=== PATIENT | female | born 1950 | race Caucasian/White ===

== ENCOUNTER → 2016-08-23 | Outpatient (CLI) | payer MEDICARE, BC ==
--- NOTE | 2016-08-26 07:03 | MM ---
Reason for exam: screening (asymptomatic). Last mammogram was performed 1 year ago. History: Patient is postmenopausal and has history of other cancer at age 62. Family history of breast cancer in 2 aunts and breast cancer in grandmother. Benign excisional biopsy of the left breast. Benign excisional biopsy of the right breast. Took estrogen for 4 years. Physical Findings: A clinical breast exam by your physician is recommended on an annual basis and results should be correlated with mammographic findings. MG 3D Screening Mammo W/Cad Bilateral CC and MLO view(s) were taken. Prior study comparison: August 22, 2015, bilateral MG 3d screening mammo w/cad. August 19, 2014, bilateral MG screening mammo w CAD. There are scattered fibroglandular densities. There is no discrete abnormality. No significant changes when compared with prior studies. ASSESSMENT: Negative, BI-RAD 1 RECOMMENDATION: Routine screening mammogram of both breasts in 1 year.
== END | disposition home or self-care (01) ==
LOC: RADMAMWWP 06:56
PROVIDERS: ATTEND Obstetrics & Gynecology
DX: Z12.31 Encounter for screening mammogram for malignant neoplasm of breast (principal)
CPT/HCPCS: 77063; G0202

== ENCOUNTER → 2016-10-01 | Outpatient (CLI) | payer MEDICARE, BC ==
--- NOTE | 2016-10-01 16:07 | BD ---
EXAMINATION TYPE: MG DEXA axial skeleton. DATE OF EXAM: 10/01/2016 2:54 PM COMPARISON: NONE CLINICAL HISTORY: Disorder of bone, post menopausal female Height: 61.4 IN Weight: 139 LBS FRAX RISK QUESTIONS: Alcohol (3 or more units per day): NO Family History (Parent hip fracture): YES MOTHER Glucocorticoids (More than 3mos): NO (Ex: prednisone, prednisolone, methylprednisolone, dexamethasone, and hydrocortisone). History of Fracture in Adulthood: NO Secondary Osteoporosis: 1. Type 1 Diabetes: NO 2. Hyperthyroidism: NO 3. Menopause before 45: YES AGE 32 4. Malnutrition: NO 5. Chronic liver disease: NO Rheumatoid Arthritis: YES Current Tobacco Use: NO RISK FACTORS HISTORY OF: Family History of Osteoporosis: YES MOTHER, AUNTS Active: YES Postmenopausal woman: YES AGE 32 Take estrogen and/or progesterone medications: NOT NOW How long: AGE 32 - 37 Lost more than 2 inches in height since high school: YES 3" MEDICATIONS: Additional Medications: VIT D 2000, LIPITOR, METOPROLOL, BABY ASPIRIN, WHARFAIN, OXYCODONE, NEUROTIN EXAM MEASUREMENTS: Bone mineral densitometry was performed using the [employer] System. Bone mineral density as measured about the Lumbar spine is: ----- L1-L4(G/cm2): 1.302 T Score Values are as follows: ----- L2: 1.2 ----- L3: 0.5 ----- L4: 0.8 ----- L1-L4: 1.0 Bone mineral density has: Decreased -0.3% since study of: 08/16/2013 Bone mineral density about the R hip (g/cm2): 0.849 Bone mineral density about the L hip (g/cm2): 0.821 T Score values are as follows: -----R Neck: -1.4 -----L Neck: -1.6 -----R Intertrochanter: -0.8 -----L Intertrochanter: -0.8 Bone mineral density has: Increased 0.5% since study of: 08/16/2013 IMPRESSION: Osteopenia (T Score between -2.5 and -1 as noted by T score values There is slightly increased risk of fracture and the patient may be considered for treatment. Re-Screen 1-2 years. NOTE: T-SCORE=SD OF THE YOUNG ADULT MEAN.
== END | disposition home or self-care (01) ==
LOC: RADBDWWP 14:53
PROVIDERS: ATTEND Obstetrics & Gynecology
DX: M85.80 Other specified disorders of bone density and structure, unspecified site (principal)
CPT/HCPCS: 77080

== ENCOUNTER → 2016-10-31 | Outpatient (CLI) | payer MEDICARE, BC ==
--- NOTE | 2016-10-31 21:13 | CONS ---
DATE: 10/31/2016 CONSULTATION/NEW PATIENT EVALUATION HISTORY OF PRESENT ILLNESS/SLEEP-WAKE EVALUATION: A 56-year-old lady who has been evaluated in sleep center for her sleep problem. SLEEP SCHEDULE: Patient usually falls asleep around midnight. Usually she sleeps until 5:00 a.m. to 7:00 a.m. FALLING ASLEEP: Patient usually falls asleep around midnight on couch for about 15 minutes and after that she may have a problem to fall asleep in her bed. DURING SLEEP: Usually she sleeps until 5:00 a.m. to 7:00 a.m. and up to 2 times she may need to go to restroom at night. She explains it by the fact that she likes to drink a lot of water. She drinks it during the day and she drinks it during the night. According to her , she has episodes of snoring at night. DURING THE DAY/WAKE STATE: During the day, she may feel some sleepiness. Mobile Sleepiness Scale increased to 11 and she has episodes of irritability. She may take naps around 3:00 p.m., according to her. She does not history of hypnagogical hallucinations, sleep paralysis or cataplexy. PAST MEDICAL HISTORY: Positive different blood disorder, MTHFR and factor V Leiden deficiency. She has been told about some more and more since childhood in her heart, she does not exactly know to which valve it is related, she was told about valve insufficiency. Positive history of acid reflux, hyperlipidemia, episodes of palpitations. PAST SURGICAL HISTORY: Total hysterectomy, cholecystectomy, tonsillectomy, left subclavian artery bypass to carotid artery. MEDICATIONS: 1. Aspirin. 2. Metoprolol. 3. Doculase. 4. Atorvastatin. 5. Warfarin. 6. Vitamin D3. 7. Oxycodone. 8. Neurontin. 9. Valtrex. 10. Protonix. SOCIAL HISTORY: Positive for smoking on and off up to 5 cigarettes a day for about 30 years. Alcohol consumption: None. FAMILY HISTORY: Heart problems, hyperlipidemia, stroke, fibromyalgia, arthritis, asthma, lung problems, emphysema, cancer. REVIEW OF SYSTEMS: Sometimes sleepiness during the day. PHYSICAL EXAMINATION: GENERAL: lady without distress. VITAL SIGNS: BP 125/72, HR 54, RR 16. Height 5 feet 1/2 inches. Weight 141. BMI 26. Neck 12-1/2 inches in circumference. Temp is 98.0. HEENT: PERRLA, EOMI. Evaluation of oropharynx showed tongue protrudes midline, low position of soft palate. Retrognathia 2 mm. NECK: Supple. No JVD. Thyroid is not palpable. LUNGS: Clear to percussion and to auscultation. Good air exchange. No wheezing or rhonchi. HEART: S1, S2 regular. No murmurs, gallops or rubs. ABDOMEN: Soft and nontender. Bowel sounds are present. No organomegaly appreciated. EXTREMITIES: No clubbing or cyanosis. MANAGER DISH: Awake, alert, and oriented x3. Cranial nerves 2 to 7 intact. There is no fasciculation or atrophy noted. No focal deficits observed. IMPRESSION: 1. Episodes of snoring, low position of soft palate, awakenings from sleep up to 2 times, Mobile Sleepiness Scale increased to 11, rule out obstructive sleep apnea/hypopnea syndrome. 2. Episodes of palpitations. 3. History of fibromyalgia. 4. History blood coagulation disorder, MTHFR and factor V Leiden deficiency. 5. Acid reflux. 6. History of some cardiac valve insufficiency. Patient does not remember which valve. Possible mitral valve. 7. Hyperlipidemia. 8. Status post total hysterectomy. 9. Status post cholecystectomy. 10. Status post tonsillectomy. 11. Status post left subclavian artery bypass to carotid artery for subclavian steal syndrome. PLAN: 1. Polysomnography for evaluation of patient's breathing during sleep. 2. CPAP/BiPAP titration if sleep study confirms obstructive sleep apnea-hypopnea syndrome. 3. Preferable position during sleep on the side. 4. No driving if patient feels any sleepiness. Patient is aware of civil and criminal liability for unsafe driving. 5. I will see patient for follow-up visit to explain results of the testing and following plan. Thank you very much for referring this patient for consultation. Sincerely, Liu Bartlett MD, PhD, FAASM. Diplomat of [place] [employer], Sleep Medicine Board by [place] [employer] [employer] Counter Attendant of [facility] [place]
== END | disposition home or self-care (01) ==
LOC: SLEEP 13:49
PROVIDERS: ATTEND Internal Medicine
DX: R06.83 Snoring (principal); R00.2 Palpitations; K21.9 Gastro-esophageal reflux disease without esophagitis; E78.5 Hyperlipidemia, unspecified; F17.210 Nicotine dependence, cigarettes, uncomplicated; Z79.82 Long term (current) use of aspirin; Z79.01 Long term (current) use of anticoagulants; Z79.899 Other long term (current) drug therapy
CPT/HCPCS: 99211

== ENCOUNTER 2017-04-07 11:06 | Emergency (ER) | payer MEDICARE, BC ==
[2017-04-07 11:18] VITALS: BP 131/84; PULSE 66; RESP 16; TEMP 98.7
[2017-04-07] MEDS ORDERED: diphenhydrAMINE 50 MG CAP PO STA (11:42)
--- NOTE | 2017-04-07 11:49 | ED ---
General Adult HPI - General Chief complaint: Allergic Reaction Stated complaint: allergic reaction Time Seen by Provider: 04/07/17 11:33 Source: patient Mode of arrival: ambulatory Limitations: no limitations - History of Present Illness Initial comments: is a 67-year-old female who presents to the ED via private vehicle for evaluation of left wrist pruritus after a Depo-Medrol injection last week. Patient reports that this is her fourth Depo-Medrol injection, she states that she has had negative reactions to each injection she has had in the past. She states she has had injections in bilateral shoulders that resulted in erythema and swelling as well as an injection in her low back that resulted in swelling which she describes as being the size of a softball. She discussed this with her orthopedic surgeon on Friday and he advised her that her options for treatment of tendinitis in her wrist were steroid injections or surgery so the patient elected to trial steroid injection. Patient reports that after the injection she began experiencing swelling, erythema and significant pruritus. She has been applying ice packs to the wrist and reports that the swelling and erythema has decreased significantly however she continues to feel very itchy. Patient denies any additional ALLERGIC symptoms including rash elsewhere, tightness in the chest, shortness of breath, wheezing, nausea or vomiting. She reports she is otherwise feeling well. - Related Data Home Medications Medication Instructions Recorded Confirmed Aspirin EC [Ecotrin] 81 mg PO DAILY 03/25/14 04/07/17 Cholecalciferol [Vitamin D3] 2,000 unit PO DAILY@1200 03/25/14 04/07/17 Docusate [Colace] 100 mg PO BID 03/25/14 04/07/17 Gabapentin [Neurontin] 400 mg PO HS 03/25/14 04/07/17 Metoprolol Tartrate [Lopressor] 25 mg PO BID 03/25/14 04/07/17 Warfarin [Coumadin] 5 mg PO SUMOWETHSA 03/25/14 04/07/17 oxyCODONE HCL [OxyIR] 5 mg PO 03/25/14 04/07/17 Atorvastatin [Lipitor] 20 mg PO HS 04/07/17 04/07/17 Warfarin [Coumadin] 7.5 mg PO TUFR 04/07/17 04/07/17 Allergies Allergy/AdvReac Type Severity Reaction Status Date / Time cefixime [From Suprax] Allergy Unknown Verified 04/07/17 12:50 diazepam [From Valium] Allergy Unknown Verified 04/07/17 12:50 ezetimibe [From Vytorin] Allergy Unknown Verified 04/07/17 12:50 hydroxychloroquine sulfate Allergy Unknown Verified 04/07/17 12:50 [From Plaquenil] morphine Allergy Unknown Verified 04/07/17 12:50 moxifloxacin HCl Allergy Unknown Verified 04/07/17 12:50 [From Avelox] Quinolones Allergy Unknown Verified 04/07/17 12:50 simvastatin [From Vytorin] Allergy Unknown Verified 04/07/17 12:50 steroid Allergy Rash/Hives Uncoded 04/07/17 11:18 Review of Systems ROS Statement: Those systems with pertinent positive or pertinent negative responses have been documented in the HPI. ROS Other: All systems not noted in ROS Statement are negative. Constitutional: Denies: fever ENT: Denies: throat pain Respiratory: Denies: cough, dyspnea, wheezes Cardiovascular: Denies: chest pain, palpitations Endocrine: Denies: fatigue Gastrointestinal: Denies: abdominal pain, nausea, vomiting Musculoskeletal: Reports: joint swelling, arthralgia. 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 History of Any Multi-Drug Resistant Organisms: None Reported Past Surgical History: Heart Catheterization, Heart Catheterization With Stent, Hysterectomy, Tubal Ligation Additional Past Surgical History / Comment(s): subclavian to carotid bypass, hemorrhectomy, bilateral breast lumpectomy, epicondyle release both elbow, lap harriett, left ring finger, bladder suspension Past Psychological History: No Psychological Hx Reported Smoking Status: Current every day smoker Past Alcohol Use History: None Reported Past Drug Use History: None Reported General Exam Limitations: no limitations General appearance: alert, in no apparent distress Head exam: Present: atraumatic, normocephalic, normal inspection Eye exam: Present: normal appearance, PERRL, EOMI. Absent: scleral icterus, conjunctival injection, periorbital swelling ENT exam: Present: normal exam, mucous membranes moist Neck exam: Present: normal inspection. Absent: tenderness, meningismus, lymphadenopathy Respiratory exam: Present: normal lung sounds bilaterally. Absent: respiratory distress, wheezes, rales, rhonchi, stridor Cardiovascular Exam: Present: regular rate, normal rhythm, normal heart sounds. Absent: systolic murmur, diastolic murmur, rubs, gallop, clicks GI/Abdominal exam: Present: soft, normal bowel sounds. Absent: distended, tenderness, guarding, rebound, rigid Rectal exam: Present: deferred Left Forearm Wrist exam: Present: tenderness, swelling, erythema, other ( excoriations on wrist consistent with itching, no vesicles, no induration, no abscess formation). Absent: ecchymosis, deformity, crepitus, dislocation Course Vital Signs 04/07/17 04/07/17 11:14 13:18 Temperature 98.7 F 98.7 F Pulse Rate 66 66 Respiratory 16 16 Rate Blood Pressure 131/84 131/84 O2 Sat by Pulse 98 98 Oximetry Medical Decision Making - Medical Decision Making Patient was seen and evaluated, history was obtained from the patient History and physical exam are concerning for an acute ALLERGIC reaction We'll obtain an x-ray to evaluate for any possible gas in the tissues By mouth Benadryl ordered for treatment of ALLERGIC reaction Patient with limited range of motion of left wrist, however is able to range the wrist approximately 45 in flexion and extension with minimal pain, also able to range the thumb. I have minimal concern for septic joint. X-ray reveals arthritic changes no air in the joint or skin Patient reports some symptomatic improvement after Benadryl and ice I feel that this is an ALLERGIC reaction to the Depo-Medrol injection, I advised the patient to continue symptomatic treatment with ice elevation and Benadryl and to follow-up with orthopedic surgery tomorrow Advised the patient to return to the emergency department should she develop any fevers, chills, worsening pain, worsening swelling, worsening erythema any purulence or drainage from the wrists or any signs or symptoms of infection. Patient's breast understanding of this plan. All questions pertaining to care were answered to the best of my ability and the patient was discharged home in stable condition. Disposition Clinical Impression: Allergic reaction Disposition: HOME SELF-CARE Condition: Good Instructions: Anaphylaxis (ED) Referrals: Pilar Newman III, MD [Primary Care Provider] - 1-2 days Jcarlos Trejo DO [Doctor of Osteopathic Medicine] - 1-2 days Time of Disposition: 12:36
--- NOTE | 2017-04-07 12:30 | XR ---
EXAMINATION TYPE: XR wrist complete LT DATE OF EXAM: 04/07/2017 CLINICAL HISTORY: Redness and pain after steroid injection 5 days ago. TECHNIQUE: Frontal, lateral , scaphoid, and oblique images of the left wrist are obtained. COMPARISON: None FINDINGS: Osseous structures are demineralized which is noted lower radiographic sensitivity. There is no acute fracture/dislocation evident in the left wrist. There is joint space loss radiocarpal malik nt. There is joint space loss distal scaphoid articulation with trapezium. The joint space loss at ba se of first metacarpal. The overlying soft tissue appears unremarkable. IMPRESSION: There is no acute fracture or dislocation in the left wrist.
== END 2017-04-07 13:19 | disposition home or self-care (01) ==
LOC: EC 11:06
DX: L29.9 Pruritus, unspecified (principal); M79.89 Other specified soft tissue disorders; T38.0X5A Adverse effect of glucocorticoids and synthetic analogues, initial encounter; I25.10 Atherosclerotic heart disease of native coronary artery without angina pectoris; E78.5 Hyperlipidemia, unspecified; F17.200 Nicotine dependence, unspecified, uncomplicated; Z95.5 Presence of coronary angioplasty implant and graft; Z79.82 Long term (current) use of aspirin; Z79.01 Long term (current) use of anticoagulants; Z79.891 Long term (current) use of opiate analgesic; Z79.899 Other long term (current) drug therapy; Z88.1 Allergy status to other antibiotic agents; Z88.5 Allergy status to narcotic agent; Z88.8 Allergy status to other drugs, medicaments and biological substances
CPT/HCPCS: 99283

== ENCOUNTER → 2017-09-03 | Outpatient (CLI) | payer MEDICARE, BC ==
--- NOTE | 2017-09-04 13:33 | MM ---
Reason for exam: screening (asymptomatic). Last mammogram was performed 1 year ago. History: Patient is postmenopausal and has history of other cancer at age 62. Family history of breast cancer in 2 aunts and breast cancer in grandmother. Benign excisional biopsy of the left breast. Benign excisional biopsy of the right breast. Took estrogen for 4 years. Physical Findings: A clinical breast exam by your physician is recommended on an annual basis and results should be correlated with mammographic findings. MG 3D Screening Mammo W/Cad Bilateral CC and MLO view(s) were taken. Prior study comparison: August 23, 2016, bilateral MG 3d screening mammo w/cad. August 22, 2015, bilateral MG 3d screening mammo w/cad. There are scattered fibroglandular densities. No significant changes when compared with prior studies. ASSESSMENT: Negative, BI-RAD 1 RECOMMENDATION: Routine screening mammogram of both breasts in 1 year.
== END | disposition home or self-care (01) ==
LOC: RADMAMWWP 09:16
PROVIDERS: ATTEND Obstetrics & Gynecology
DX: Z12.31 Encounter for screening mammogram for malignant neoplasm of breast (principal); Z80.3 Family history of malignant neoplasm of breast
CPT/HCPCS: 77063; 77067

== ENCOUNTER → 2017-10-31 | Outpatient (CLI) | payer MEDICARE, BC ==
--- NOTE | 2017-10-31 09:15 | CT ---
EXAMINATION TYPE: CT sinus wo con DATE OF EXAM: 10/31/2017 COMPARISON: NONE HISTORY: Facial pain and pressure with sinus drainage per patient. Chronic sinusitis per order. CT DLP: 559 mGycm. Automated Exposure Control for Dose Reduction was Utilized. TECHNIQUE: CT scan of the sinuses is performed without contrast, axial images are obtained, coronal r eformatted images are also reviewed. FINDINGS: The paranasal sinuses including the frontal, ethmoid, sphenoid, and maxillary sinuses bila terally are well-aerated without abnormal opacification. The ostiomeatal complex is patent bilateral ly on the coronal images. Visualized portion of mastoid air cells show no abnormal opacification. The globes are intact bilate rally. Visualized portion of brain parenchyma shows age-related atrophy. IMPRESSION: The sinuses are clear and the ostiomeatal complex is patent bilaterally.
== END ==
LOC: RADCTMAIN 08:38
PROVIDERS: ATTEND Internal Medicine
DX: J32.9 Chronic sinusitis, unspecified (principal)
CPT/HCPCS: 70486

== ENCOUNTER → 2018-03-06 | Outpatient (CLI) | payer MEDICARE, BC ==
[2018-03-06 10:33] LABS: Calcium 9.3 mg/dL (8.4-10.2); Potassium 4.6 mmol/L (3.5-5.1); Total Bilirubin 0.6 mg/dL (0.2-1.3); Total Protein 6.7 g/dL (6.3-8.2)
== END | disposition home or self-care (01) ==
LOC: LABWHC1 09:43
PROVIDERS: ATTEND Internal Medicine Interventional Cardiology
DX: E78.2 Mixed hyperlipidemia (principal)
CPT/HCPCS: 36415; 80053; 80061

== ENCOUNTER → 2018-06-05 | Outpatient (CLI) | payer MEDICARE, BC ==
--- NOTE | 2018-06-05 15:46 | US ---
EXAMINATION TYPE: US thyroid st tissue head/neck DATE OF EXAM: 06/05/2018 COMPARISON: NONE CLINICAL HISTORY: E04.1 Thyroid nodule. felt nodule GLAND SIZE: Right Lobe: 6.3 x 1.9 x 2.3 cm Overall Parenchyma: homogenous Left Lobe: 5.3 x 1.5 x 2.0 cm Overall Parenchyma: homogeneous Isthmus Thickness: 0.3 cm NODULES RIGHT: # of nodules measured on right: 0 LEFT: # of nodules measured on left: 0 ISTHMUS: # of nodules measured in the isthmus: 0 Bilateral neck scanned, no evidence of lymphadenopathy. No nodules seen. IMPRESSION: Normal thyroid ultrasound.
[2018-06-05 16:36] LABS: T4, Free (Free Thyroxine) 1.31 ng/dL (0.78-2.19)
== END | disposition home or self-care (01) ==
LOC: RADUSWWP 14:59
PROVIDERS: ATTEND Otolaryngology
DX: R22.1 Localized swelling, mass and lump, neck (principal); Z88.5 Allergy status to narcotic agent; Z88.8 Allergy status to other drugs, medicaments and biological substances
CPT/HCPCS: 76536; 84439; 84443; 86376

== ENCOUNTER → 2018-10-02 | Outpatient (CLI) | payer MEDICARE, BC ==
--- NOTE | 2018-10-02 21:13 | BD ---
EXAMINATION TYPE: Axial Bone Density DATE OF EXAM: 10/02/2018 COMPARISON: 10.01.2016 CLINICAL HISTORY: 68 YR OLD FEMALE....ICD-10 CODE: M85.80 OTHER SPECIF. DISORDER OF BONE DENSITY Height: 61.3 Weight: 126 FRAX RISK QUESTIONS: Family History (Parent hip fracture): YES Secondary Osteoporosis: YES 3. Menopause before 45: YES Current Tobacco Use: YES RISK FACTORS HISTORY OF: HX OF BOTH ANKLES BROKEN....<50 YRS OLD Surgery to Spine ONLY INJECTIONS AND NERVE CAUTERIZATIONS Family History of Osteoporosis: YES, MOTHER WITH BROKEN HIP Active: YES Postmenopausal woman: TOTAL HYST AT AGE 23 Take estrogen and/or progesterone medications: IN PAST ONLY ....NONE NOW Lost more than 2 inches in height since high school: YES Hyperparathyroidism: UNSURE MEDICATIONS: Additional Medications: BP MEDS, VIT D, STATINS FOR CHOLESTEROL AND REFLUX MEDS Additional History: HEART CONDITION EXAM MEASUREMENTS: Bone mineral densitometry was performed using the [employer] System. Bone mineral density as measured about the Lumbar spine is: ----- L1-L4(G/cm2): 1.368 T Score Values are as follows: ----- L1: 1.5 ----- L2: 1.6 ----- L3: 1.4 ----- L4: 1.7 ----- L1-L4: 1.6 Bone mineral density has: Increased 6.5% SINCE...10.01.2016 Bone mineral density about the R hip (g/cm2): 0.931 Bone mineral density about the L hip (g/cm2): 0.852 T Score values are as follows: -----R Neck: -1.1 -----L Neck: -2.0 -----R Total: -0.6 -----L Total: -1.2 Bone mineral density has: Decreased -5.5% SINCE....10.01.2016 FRAX%s: THERE IS A 19.1% CHANCE FOR A MAJOR OSTEOPOROTIC FX AND A 3.8% FOR HIP FX....PROBABILITY O F FX IN 10 YRS TIME IMPRESSION: Osteopenia (T Score between -2.5 and -1). There is slightly increased risk of fracture and the patient may be considered for treatment. Re-Screen 2-5 years. NOTE: T-SCORE=SD OF THE YOUNG ADULT MEAN.
== END | disposition home or self-care (01) ==
LOC: RADBDWWP 08:05
PROVIDERS: ATTEND Family Medicine
DX: M85.80 Other specified disorders of bone density and structure, unspecified site (principal)
CPT/HCPCS: 77080

== ENCOUNTER → 2018-10-16 | Outpatient (CLI) | payer MEDICARE, BC ==
--- NOTE | 2018-10-19 11:19 | MM ---
Reason for exam: screening (asymptomatic). Last mammogram was performed 1 year and 1 month ago. History: Patient is postmenopausal and has history of other cancer at age 62. Family history of breast cancer in 2 aunts and breast cancer in grandmother. Benign excisional biopsy of the left breast. Benign excisional biopsy of the right breast. Took estrogen for 4 years. Physical Findings: A clinical breast exam by your physician is recommended on an annual basis and results should be correlated with mammographic findings. MG 3D Screening Mammo W/Cad Bilateral CC and MLO view(s) were taken. Prior study comparison: September 03, 2017, bilateral MG 3d screening mammo w/cad. August 23, 2016, bilateral MG 3d screening mammo w/cad. There are scattered fibroglandular densities. Benign appearing bilateral vascular calcifications. No suspicious abnormality. No significant changes when compared with prior studies. ASSESSMENT: Benign, BI-RAD 2 RECOMMENDATION: Routine screening mammogram of both breasts in 1 year.
== END | disposition home or self-care (01) ==
LOC: RADMAMWWP 07:32
PROVIDERS: ATTEND Obstetrics & Gynecology
DX: Z12.31 Encounter for screening mammogram for malignant neoplasm of breast (principal)
CPT/HCPCS: 77063; 77067

== ENCOUNTER → 2018-10-20 | Outpatient (CLI) | payer MEDICARE, BC ==
--- NOTE | 2018-10-20 13:04 | CT ---
EXAMINATION TYPE: CT chest w con DATE OF EXAM: 10/20/2018 COMPARISON: 06/08/2015 HISTORY: 68-year-old female. Previous abn exam TECHNIQUE: Contiguous axial scanning of the chest after the administration of 100 ml mL of Isovue 300 . Coronal/sagittal reconstructions performed. CT DLP: 133.00mGycm. Automatic exposure control utilized for a dose reduction. FINDINGS: Heart normal size without pericardial effusion. Coronary vessel calcifications are present. Mild atherosclerotic arch calcifications with conventional arch vessels branching anatomy. A proximal left subclavian artery stent is present. Prominent right axillary lymph nodes are unchanged from 2015 suggesting a chronic postinflammatory et iology. Focal 6 mm groundglass patch of peripheral right upper lobe is unchanged. 4 mm right mid lung pulmonary nodule is unchanged. Calcified granuloma left lower lobe is unchanged. 4 mm peripheral left lower lobe pulmonary nodule axial image 32 is unchanged. No consolidation or pleural effusion. Visualized upper abdomen shows cholecystectomy clips. Bones: Moderate degenerative disc disease mid to lower thoracic spine. IMPRESSION: Stable bilateral pulmonary nodules and a 6 mm groundglass right upper lobe pulmonary nodule back to 08/08/2014. No acute pulmonary process. Prior granulomatous disease.
== END | disposition home or self-care (01) ==
LOC: RADCTMAIN 11:01
PROVIDERS: ATTEND Internal Medicine
DX: R91.8 Other nonspecific abnormal finding of lung field (principal); D71 Functional disorders of polymorphonuclear neutrophils
CPT/HCPCS: 82565; 84520; 71260; 36415; Q9967

== ENCOUNTER → 2019-04-21 | Outpatient (CLI) | payer MEDICARE, BC ==
[2019-04-21 23:32] LABS: ALT 24 U/L (8-44); AST 25 U/L (13-35)
== END | disposition home or self-care (01) ==
LOC: LABWHC1 15:31
PROVIDERS: ATTEND Nurse Practitioner Adult Health
DX: E78.2 Mixed hyperlipidemia (principal)
CPT/HCPCS: 36415; 84450; 84460

== ENCOUNTER → 2019-09-21 | Outpatient (CLI) | payer MEDICARE, BC ==
[2019-09-21 14:15] LABS: Hyaline Casts,Urine 1 /lpf (0-2); Mucus,Urine Rare /hpf; RBC,Urine 3 /hpf (0-5); Squamous Epithelial Cell,Urine 2 /hpf (0-4); WBC,Urine 1 /hpf (0-5)
[2019-09-21 14:23] LABS: Appearance,Urine Clear (Clear); Color,Urine Yellow; Specific Gravity,Urine 1.015 (1.001-1.035)
[2019-09-21 14:24] LABS: Bilirubin,Urine Negative (Negative); Blood,Urine Moderate (Negative); Glucose,Urine (UA) Negative (Negative); Ketones,Urine Negative (Negative); Leukocyte Esterase,Urine Negative (Negative); Nitrite,Urine Negative (Negative); Protein,Urine Negative (Negative); Urobilinogen,Urine <2.0 mg/dL (<2.0)
[2019-09-21 18:46] LABS: African American GFR (CKD) 67.5 (60.0-200.0); Anion Gap 3.9 mmol/L (4.00-12.00); Calcium 9.3 mg/dL (8.7-10.3); Carbon Dioxide 26.1 mmol/L (21.6-31.8); Non-African American GFR(CKD) 58.2 (60.0-200.0); Potassium 4.5 mmol/L (3.5-5.5)
[2019-09-21 21:09] LABS: Hemoglobin A1C 5.5 % (4.0-6.0)
== END ==
LOC: LABWHC1 12:17
PROVIDERS: ATTEND Internal Medicine
DX: R35.8 Other polyuria (principal)
CPT/HCPCS: 36415; 80048; 81001; 83036

== ENCOUNTER → 2019-10-06 | Outpatient (CLI) | payer MEDICARE, BC ==
--- NOTE | 2019-10-07 12:31 | MM ---
Reason for exam: screening (asymptomatic). Last mammogram was performed 1 year ago. History: Patient is postmenopausal and has history of other cancer at age 62. Family history of breast cancer in 2 aunts and breast cancer in grandmother. Benign excisional biopsy of the left breast. Benign excisional biopsy of the right breast. Took hormonal contraceptives for 5 years. Took estrogen for 4 years. Physical Findings: A clinical breast exam by your physician is recommended on an annual basis and results should be correlated with mammographic findings. MG 3D Screening Mammo W/Cad Bilateral CC and MLO view(s) were taken. Prior study comparison: October 16, 2018, bilateral MG 3d screening mammo w/cad. September 03, 2017, bilateral MG 3d screening mammo w/cad. There are scattered fibroglandular densities. Benign appearing bilateral vascular calcifications. No suspicious abnormality. No significant changes when compared with prior studies. ASSESSMENT: Benign, BI-RAD 2 RECOMMENDATION: Routine screening mammogram of both breasts in 1 year.
== END | disposition home or self-care (01) ==
LOC: RADMAMWWP 09:06
PROVIDERS: ATTEND Obstetrics & Gynecology
DX: Z12.31 Encounter for screening mammogram for malignant neoplasm of breast (principal)
CPT/HCPCS: 77063; 77067

== ENCOUNTER → 2019-10-22 | Outpatient (CLI) | payer MEDICARE, BC ==
[2019-10-22 11:10] LABS: African American GFR (CKD) 76.7 (60.0-200.0); Albumin 4.2 g/dL (3.80-4.90); Albumin/Globulin Ratio 1.68 (1.60-3.17); BUN/Creat Ratio 17.78 Ratio (12.00-20.00); Calcium 9.4 mg/dL (8.7-10.3); Chol/HDL Ratio 2.59; Globulin 2.5 g/dL (1.6-3.3); Non-African American GFR(CKD) 66.2 (60.0-200.0); Potassium 4.8 mmol/L (3.5-5.5); Total Bilirubin 0.2 mg/dL (0.3-1.2); Total Protein 6.7 g/dL (6.2-8.2)
== END | disposition home or self-care (01) ==
LOC: LABWHC1 07:26
PROVIDERS: ATTEND Internal Medicine Interventional Cardiology
DX: E78.2 Mixed hyperlipidemia (principal)
CPT/HCPCS: 36415; 80053; 80061

== ENCOUNTER → 2020-04-14 | Outpatient (CLI) | payer MEDICARE, BC ==
--- NOTE | 2020-04-14 13:06 | CTL ---
EXAMINATION TYPE: CT Low Dose Lung DATE OF EXAM ORDERED: 04/14/2020 HISTORY: . Lung cancer screening CT DLP: [address] CTDI: 1.7 mGy Automated exposure control for dose reduction was used. SCREENING VISIT: COMPARISON: 06/08/2015 TECHNIQUE: Low dose computed tomography scan was performed through the chest at 1 mm thick sections a nd reconstructed images in the coronal plane at [address] DIAGNOSTIC QUALITY: Satisfactory FINDINGS: LUNG NODULES: There is a 2 mm subpleural nodule in the right upper lobe There is a calcified 5 mm granuloma right upper lobe. In the right lung apex is somewhat stellate tiny density measuring 5.5 mm. Calcified granuloma posterior segment left lower lobe. LUNGS: Biapical pleural thickening. No consolidation or pleural effusion. PLEURAL SPACE: No pleural effusion or calcification. No pneumothorax. HEART: Coronary artery calcification noted. There is cardiomegaly with no sizable pericardial effusion. Athe rosclerotic change of the aorta. OTHER FINDINGS: Postcholecystectomy changes in the abdomen on the right. Hypertrophic and degenerative changes of the spine. IMPRESSION: 1. Multiple subcentimeter pulmonary nodules as discussed above one of which measures 6 mm. 6 mm nodul e right upper lobe appears stable from 2014 and therefore likely related to scar. 2. Dense coronary artery calcification FOLLOW UP CT CHEST RECOMMENDATION: Annual [address] LUNG RAD: Lung-Rad 2 Benign Appearance or Behavior
== END | disposition home or self-care (01) ==
LOC: RADCTMAIN 12:23
PROVIDERS: ATTEND Family Medicine
DX: Z12.2 Encounter for screening for malignant neoplasm of respiratory organs (principal); R91.8 Other nonspecific abnormal finding of lung field; I25.10 Atherosclerotic heart disease of native coronary artery without angina pectoris; Z87.891 Personal history of nicotine dependence

== ENCOUNTER → 2020-04-25 | Outpatient (CLI) | payer MEDICARE, BC ==
[2020-04-25 18:23] LABS: Chol/HDL Ratio 2.41; LDL Cholesterol,Calculated 69.6 mg/dL (0.0-131.0); VLDL Calculation 16.4 mg/dL (5.00-40.00)
== END | disposition home or self-care (01) ==
LOC: LABWHC1 10:27
PROVIDERS: ATTEND Nurse Practitioner Adult Health
DX: E78.2 Mixed hyperlipidemia (principal)
CPT/HCPCS: 36415; 80061

== ENCOUNTER → 2020-06-16 | Outpatient (CLI) | payer MEDICARE, BC ==
[2020-06-16 16:05] LABS: African American GFR (CKD) 76.1 (60.0-200.0); Anion Gap 6.3 mmol/L (4.00-12.00); BUN/Creat Ratio 14.44 Ratio (12.00-20.00); Calcium 9.5 mg/dL (8.7-10.3); Carbon Dioxide 29.7 mmol/L (21.6-31.8); Non-African American GFR(CKD) 65.7 (60.0-200.0); Potassium 4.8 mmol/L (3.5-5.5)
== END | disposition home or self-care (01) ==
LOC: LABWHC1 08:25
PROVIDERS: ATTEND Nurse Practitioner Adult Health
DX: I10 Essential (primary) hypertension (principal)
CPT/HCPCS: 36415; 80048

== ENCOUNTER → 2020-09-29 | Outpatient (CLI) | payer MEDICARE, BC ==
--- NOTE | 2020-09-29 13:52 | CT ---
EXAMINATION TYPE: CT abdomen pelvis w con DATE OF EXAM: 09/29/2020 COMPARISON: None HISTORY: 40 lb weight loss over past year. CT DLP: 365.1 mGycm CONTRAST: CT scan of the abdomen and pelvis is performed with Oral Contrast and with IV Contrast, patient injec mary with 100 mL of Isovue M300. FINDINGS: LUNG BASES-: No visible nodule. No infiltrate. LIVER/GB: Cholecystectomy clips are in place. No space occupying hepatic lesion. Biliary tree is o f normal caliber. PANCREAS: No inflammation. No distinct mass. SPLEEN: No splenic enlargement. No lesion seen. ADRENALS: No nodule. No thickening. KIDNEYS/BLADDER: No hydronephrosis. No nephrolithiasis. No distinct renal mass. Urinary bladder g rossly unremarkable. BOWEL: Normal appendix. Normal bowel caliber. No inflammation. GENITAL ORGANS: No gross abnormality. LYMPH NODES: No greater than 1cm abdominal or pelvic lymph nodes are appreciated. AORTA: No significant abnormality. OSSEOUS STRUCTURES: No significant abnormality is seen. OTHER: No significant additional abnormality is seen. IMPRESSION: 1. No significant abnormality to account for the patient's symptoms.
== END | disposition home or self-care (01) ==
LOC: RADCTMAIN 11:43
PROVIDERS: ATTEND Internal Medicine
DX: R63.4 Abnormal weight loss (principal)
CPT/HCPCS: 82565; 84520; 74177; 36415; Q9967 ×2

== ENCOUNTER → 2020-10-09 | Outpatient (CLI) | payer MEDICARE, BC ==
--- NOTE | 2020-10-10 11:24 | MM ---
Reason for exam: screening (asymptomatic). Last mammogram was performed 1 year ago. History: Patient is postmenopausal and has history of other cancer at age 62. Family history of breast cancer in 2 aunts and breast cancer in grandmother. Benign excisional biopsy of the left breast. Benign excisional biopsy of the right breast. Took hormonal contraceptives for 5 years. Took estrogen for 4 years. Physical Findings: A clinical breast exam by your physician is recommended on an annual basis and results should be correlated with mammographic findings. MG 3D Screening Mammo W/Cad Bilateral CC and MLO view(s) were taken. Prior study comparison: October 06, 2019, bilateral MG 3d screening mammo w/cad. October 16, 2018, bilateral MG 3d screening mammo w/cad. There are scattered fibroglandular densities. There are benign appearing round, vascular calcifications bilaterally. There is chronic nodularity in the left axilla. There is no discrete abnormality. ASSESSMENT: Benign, BI-RAD 2 RECOMMENDATION: Routine screening mammogram of both breasts in 1 year.
== END | disposition home or self-care (01) ==
LOC: RADMAMWWP 07:30
PROVIDERS: ATTEND Obstetrics & Gynecology
DX: Z12.31 Encounter for screening mammogram for malignant neoplasm of breast (principal)
CPT/HCPCS: 77063; 77067

== ENCOUNTER → 2020-10-30 | Outpatient (CLI) | payer MEDICARE, BC ==
--- NOTE | 2020-10-30 18:44 | BD ---
EXAMINATION TYPE: Axial Bone Density DATE OF EXAM: 10/30/2020 COMPARISON: 10.01.2016 CLINICAL HISTORY: 70 YR OLD FEMALE.....ICD-10 CODE: M89.9 DISORDER OF BONE Height: 61 Weight: 114 FRAX RISK QUESTIONS: Family History (Parent hip fracture): YES History of Fracture in Adulthood: YES Secondary Osteoporosis: YES 3. Menopause before 45: YES Rheumatoid Arthritis: YES Current Tobacco Use: YES RISK FACTORS HISTORY OF: HX OF BOTH ANKLE FXS AN ADULT Surgery to Spine PAIN INJECTIONS, ONLY, Family History of Osteoporosis: YES, HER MOTHER, WITH HIP FX Postmenopausal woman: YES, AT 32 YRS OLD, EARLY NATURALLY Take estrogen and/or progesterone medications: YES IN THE PAST FOR SHORT TIME Lost more than 2 inches in height since high school: YES Hyperparathyroidism: NO Adrenal Insufficiency: NO MEDICATIONS: Prednisone or other steroids: PRN ONLY Additional Medications: BP MEDS, REFLUX MEDS PRN, STATIN FOR CHOLESTEROL, VIT D, BLOOD THINNERS Additional History: HYPERTENSION, REFLUX, HX OF BLOOD CLOTS, LT SUBCLAVIAN, CHOLESTEROL, RA EXAM MEASUREMENTS: Bone mineral densitometry was performed using the [employer] System. Bone mineral density as measured about the Lumbar spine is: ----- L1-L4(G/cm2): 1.316 T Score Values are as follows: ----- L1: 1.6 ----- L2: 1.1 ----- L3: 1.0 ----- L4: 0.8 ----- L1-L4: 1.1 Bone mineral density has: Increased 1.1% SINCE...... 10.01.2016 Bone mineral density about the R hip (g/cm2): 0.880 Bone mineral density about the L hip (g/cm2): 0.807 T Score values are as follows: -----R Neck: -1.3 -----L Neck: -2.2 -----R Total: -1.0 -----L Total: -1.6 Bone mineral density has: Decreased -10.7% SINCE..... 10.01.2016 FRAX%s: THERE IS A 39.7% CHANCE FOR A MAJOR OSTEOPOROTIC FX AND A 16.0% FOR HIP.....PROBABILITY FOR FX IN 10 YRS TIME IMPRESSION: Osteopenia (T Score between -2.5 and -1). There is slightly increased risk of fracture and the patient may be considered for treatment. Re-Screen 2-5 years. NOTE: T-SCORE=SD OF THE YOUNG ADULT MEAN.
== END | disposition home or self-care (01) ==
LOC: RADBDWWP 09:18
PROVIDERS: ATTEND Obstetrics & Gynecology
DX: M85.80 Other specified disorders of bone density and structure, unspecified site (principal)
CPT/HCPCS: 77080

== ENCOUNTER → 2020-11-06 | Outpatient (CLI) | payer MEDICARE, BC ==
[2020-11-06 16:32] LABS: Albumin 4.2 g/dL (3.80-4.90); Albumin/Globulin Ratio 1.91 (1.60-3.17); Anion Gap 3.1 mmol/L (4.00-12.00); Calcium 9.3 mg/dL (8.7-10.3); Carbon Dioxide 28.9 mmol/L (21.6-31.8); Chol/HDL Ratio 2.46; Globulin 2.2 g/dL (1.6-3.3); Non-African American GFR(CKD) 57.8 (60.0-200.0); Potassium 5.2 mmol/L (3.5-5.5); Total Bilirubin 0.3 mg/dL (0.3-1.2); Total Protein 6.4 g/dL (6.2-8.2)
== END | disposition home or self-care (01) ==
LOC: LABWHC1 07:21
PROVIDERS: ATTEND Nurse Practitioner Adult Health
DX: E78.2 Mixed hyperlipidemia (principal); I10 Essential (primary) hypertension
CPT/HCPCS: 36415; 80053; 80061

== ENCOUNTER → 2021-04-19 | Outpatient (CLI) | payer MEDICARE, BC ==
[2021-04-19 17:45] LABS: African American GFR (CKD) >90 (>60 ml/min/1.73 sqM); Blood Urea Nitrogen 13 mg/dL (7-17); Non-African American GFR(CKD) 84 (>60 ml/min/1.73 sqM)
--- NOTE | 2021-04-20 16:47 | CT ---
EXAMINATION TYPE: CT chest w con DATE OF EXAM: 04/19/2021 COMPARISON: 10/20/2018 HISTORY: lung nodule CT DLP: 134.1 mGycm, Automated exposure control for dose reduction was used. CONTRAST: Performed injected with 80 mL of Isovue 300. TECHNIQUE: Axial images were obtained at 5 mm thick sections. Reconstructed images are reviewed on [employer] computer in the coronal plane. FINDINGS: Portion of the thyroid visualized is normal. No suspicious lung nodules or focal infiltrates are present. There is a calcified granuloma in the pe riphery of the right mid lung. Series 4 image 28. An additional calcified granulomas in the periphery of the posterior lateral left lung. Previous pneumonitis in the right lung is not identified. No enlarged mediastinal or hilar adenopathy is evident. The ascending aorta diameter at the level o f the main pulmonary artery is 2.9 cm. The main pulmonary artery diameter at the bifurcation is 2.6 cm. Coronary artery calcifications likely present. Limited CT sections are obtained through the upper abdomen. Abdomen is essentially unremarkable. IMPRESSIONS: 1. No suspicious acute changes.
== END | disposition home or self-care (01) ==
LOC: RADCTMAIN 17:00
PROVIDERS: ATTEND Internal Medicine
DX: R91.1 Solitary pulmonary nodule (principal)
CPT/HCPCS: 82565; 84520; 71260; 36415; Q9967

== ENCOUNTER → 2021-06-02 | Outpatient (CLI) | payer MEDICARE, BC ==
[2021-06-02 13:07] LABS: African American GFR (CKD) 75.6 (60.0-200.0); Albumin 4.3 g/dL (3.8-4.9); Albumin/Globulin Ratio 1.87 (1.60-3.17); Anion Gap 11.9 mmol/L (4.00-12.00); Blood Urea Nitrogen 13.5 mg/dL (9.0-27.0); Calcium 9.8 mg/dL (8.7-10.3); Carbon Dioxide 25.1 mmol/L (21.6-31.8); Chol/HDL Ratio 2.22 Ratio; Globulin 2.3 g/dL (1.6-3.3); HDL Cholesterol 66.3 mg/dL (40.00-60.00); LDL Cholesterol,Calculated 68.1 mg/dL (0.0-131.0); Non-African American GFR(CKD) 65.2 (60.0-200.0); Potassium 4.9 mmol/L (3.5-5.5); Total Bilirubin 0.4 mg/dL (0.30-1.20); Total Protein 6.6 g/dL (6.2-8.2); Triglycerides 62.8 mg/dL (0.00-149.00); VLDL Calculation 12.56 mg/dL (5.00-40.00)
== END | disposition home or self-care (01) ==
LOC: LABWHC1 08:05
PROVIDERS: ATTEND Nurse Practitioner Adult Health
DX: I10 Essential (primary) hypertension (principal); E78.2 Mixed hyperlipidemia
CPT/HCPCS: 36415; 80053; 80061

== ENCOUNTER → 2021-10-10 | Outpatient (CLI) | payer MEDICARE, BC ==
--- NOTE | 2021-10-10 13:58 | MM ---
Reason for exam: screening (asymptomatic). Last mammogram was performed 1 year ago. History: Patient is postmenopausal and has history of other cancer at age 62. Family history of breast cancer in mother at age 74, breast cancer in 2 aunts, and breast cancer in grandmother. Benign excisional biopsy of the left breast. Benign excisional biopsy of the right breast. Took hormonal contraceptives for 5 years. Took estrogen for 4 years. Physical Findings: A clinical breast exam by your physician is recommended on an annual basis and results should be correlated with mammographic findings. MG 3D Screening Mammo W/Cad Bilateral CC and MLO view(s) were taken. Prior study comparison: October 09, 2020, bilateral MG 3d screening mammo w/cad. October 06, 2019, bilateral MG 3d screening mammo w/cad. The breast tissue is heterogeneously dense. This may lower the sensitivity of mammography. Stable vascular calcifications. There is no discrete abnormality. No significant changes when compared with prior studies. ASSESSMENT: Benign, BI-RAD 2 RECOMMENDATION: Routine screening mammogram of both breasts in 1 year.
== END | disposition home or self-care (01) ==
LOC: RADMAMWWP 07:05
PROVIDERS: ATTEND Obstetrics & Gynecology
DX: Z12.31 Encounter for screening mammogram for malignant neoplasm of breast (principal); Z78.0 Asymptomatic menopausal state; Z80.3 Family history of malignant neoplasm of breast
CPT/HCPCS: 77063; 77067

== ENCOUNTER → 2022-01-03 | Outpatient (CLI) | payer MEDICARE, BC ==
[2022-01-03 11:14] LABS: ALT 12 U/L (8-44); AST 23 U/L (13-35); Chol/HDL Ratio 2.36 Ratio; LDL Cholesterol,Calculated 75.9 mg/dL (0.0-131.0); VLDL Calculation 12.22 mg/dL (5.00-40.00)
== END | disposition home or self-care (01) ==
LOC: LABWHC1 07:06
PROVIDERS: ATTEND Nurse Practitioner Adult Health
DX: E78.2 Mixed hyperlipidemia (principal)
CPT/HCPCS: 36415; 80061; 84450; 84460

== ENCOUNTER → 2022-10-31 | Outpatient (CLI) | payer MEDICARE, BC ==
--- NOTE | 2022-10-31 12:45 | BD ---
EXAMINATION TYPE: Axial Bone Density DATE OF EXAM: 10/31/2022 CLINICAL HISTORY: 72 years old Female. ICD-10 CODE: M85.88 DISORDER OF BONE DENSITY Height: 61 Weight: 108 FRAX RISK QUESTIONS: Family History (Parent hip fracture): yes History of Fracture in Adulthood: yes Secondary Osteoporosis: yes 3. Menopause before 45: yes Rheumatoid Arthritis: yes Current Tobacco Use: yes RISK FACTORS HISTORY OF: bilat ankle fxs as an adult Spine : pain injections only Family History of Osteoporosis: yes Postmenopausal woman: yes, at 32 yrs. Old Take estrogen and/or progesterone medications: in past for short time Hyperparathyroidism: no Adrenal Insufficiency: no MEDICATIONS: Additional Medications: bp meds, reflux meds, statin for cholesterol, blood thinners, vit d, Additional History: hx of bypass, hypertension, cholesterol, 2 clotting disorders, reflux, EXAM MEASUREMENTS: Bone mineral densitometry was performed using the [employer]. Bone mineral density as measured about the Lumbar spine is: ----- L1-L4(G/cm2): 1.027 T Score Values are as follows: ----- L1: -0.1 ----- L2: -0.4 ----- L3: 0.6 ----- L4: 0.4 ----- L1-L4: 0.2 Z Score Values are as follows: ----- L1: 2.0 ----- L2: 1.8 ----- L3: 2.7 ----- L4: 2.6 ----- L1-L4: 2.4 Bone mineral density has: Decreased -8.3% since study of: 10.30.2020 Bone mineral density about the R hip (g/cm2): 0.834 Bone mineral density about the L hip (g/cm2): 0.756 T Score values are as follows: -----R Neck: -1.6 -----L Neck: -2.6 -----R Total: -1.4 -----L Total: -2.0 Z Score values are as follows: -----R Neck: 0.5 -----L Neck: -0.5 -----R Total: 0.5 -----L Total: -0.1 Bone mineral density has: Decreased -5.7% since study of: 10.30.2020 FRAX%s: The graph provided illustrates a 46.8% chance for a major osteoporotic fx and a 28.4% chance for the hips probability for fx in 10 years time. IMPRESSION: Osteoporosis (T Score less than -2.5). There is increased fracture risk and therapy is usually indicated based on age. Re-Screen 1-2 years. NOTE: T-SCORE=SD OF THE YOUNG ADULT MEAN.
--- NOTE | 2022-11-01 07:51 | MM ---
Reason for Exam: Screening (asymptomatic). Last screening mammogram was performed 12 month(s) ago. Patient History: Menarche at age 15. First Full-Term at age 21. Left ovary removed at age 32. Right ovary removed at age 32. Hysterectomy at age 32. Postmenopausal. Other cancer, age 62. Estrogen for 4 years until age 54. Patient used Hormonal Contraceptives for 5 years. Benign Excisional Biopsy on the right side. Benign Excisional Biopsy on the left side. Maternal grandmother had breast cancer. Maternal aunt had breast cancer. Maternal aunt had breast cancer. Mother had breast cancer, age 74. Risk Values: Lupe 5 year model risk: 4.8%. NCI Lifetime model risk: 13.5%. Prior Study Comparison: 10/06/2019 Bilateral Screening Mammogram, [facility]. 10/09/2020 Bilateral Screening Mammogram, [facility]. 10/10/2021 Bilateral Screening Mammogram, [facility]. Tissue Density: There are scattered fibroglandular densities. Findings: Analyzed By CAD. There is no suspicious group of microcalcifications or new suspicious mass in either breast. Overall Assessment: Negative, BI-RAD 1 Management: Screening Mammogram of both breasts in 1 year. A clinical breast exam by your physician is recommended on an annual basis and results should be correlated with mammographic findings. Electronically signed and approved by: Rufino Lopez M.D. Radiologis
== END | disposition home or self-care (01) ==
LOC: RADMAMWWP 08:04
PROVIDERS: ATTEND Obstetrics & Gynecology
DX: Z12.31 Encounter for screening mammogram for malignant neoplasm of breast (principal); M81.0 Age-related osteoporosis without current pathological fracture; M85.88 Other specified disorders of bone density and structure, other site
CPT/HCPCS: 77063; 77067; 77080

== ENCOUNTER → 2022-12-31 | Outpatient (CLI) | payer MEDICARE, BC ==
[2022-12-31 15:51] LABS: ALT 17 U/L (8-44); AST 21 U/L (13-35); Chol/HDL Ratio 2.07 Ratio; LDL Cholesterol,Calculated 66.8 mg/dL (0.0-131.0); VLDL Calculation 9.64 mg/dL (5.00-40.00)
== END | disposition home or self-care (01) ==
LOC: LABWHC1 07:03
PROVIDERS: ATTEND Internal Medicine Interventional Cardiology
DX: E78.2 Mixed hyperlipidemia (principal)
CPT/HCPCS: 36415; 80061; 84450; 84460

== ENCOUNTER 2023-03-11 18:09 | Emergency (ER) | payer MEDICARE, BC ==
[2023-03-11 18:35] VITALS: TEMP 99.6
[2023-03-11] MEDS ORDERED: SODIUM CHLORIDE 0.9% 1,000 ML IV STA (18:56)
[2023-03-11] MEDS ORDERED: IPRATROPIUM-ALBUTEROL 3 ML NEB INHALATION STA (18:56)
[2023-03-11] MEDS ORDERED: methylPREDNISolone SOD SUCCI 125 MG/2 ML VIAL IV STA (18:56)
[2023-03-11 19:16] VITALS: RESP 18
[2023-03-11 19:18] LABS: Basophils # (A) 0.1 k/uL (0-0.2); Basophils % (A) 1 %; Eosinophils % (A) 0 %; HCT 43.7 % (34.0-46.0); Lymphocytes # (A) 0.4 k/uL (1.0-4.8); Lymphocytes % (A) 6 %; MCH 32.5 pg (25.0-35.0); MCHC 34.4 g/dL (31.0-37.0); MCV 94.4 fL (80.0-100.0); Mean Platelet Volume 7.3; Monocytes # (A) 0.6 k/uL (0-1.0); Monocytes % (A) 9 %; Neutrophils # (A) 5.2 k/uL (1.3-7.7); Neutrophils % (A) 81 %; Platelet Count 200 k/uL (150-450); RBC 4.63 m/uL (3.80-5.40); RDW 11.4 % (11.5-15.5); WBC 6.4 k/uL (3.8-10.6)
--- NOTE | 2023-03-11 19:28 | XR ---
EXAMINATION TYPE: XR chest 2V DATE OF EXAM: 03/11/2023 7:14 PM COMPARISON: Chest radiographs from 02/28/2023 TECHNIQUE: XR chest 2V Frontal and lateral views of the chest. CLINICAL INDICATION:Female, 72 years old with history of cough; FINDINGS: Lungs/Pleura: There is no evidence of pleural effusion, focal consolidation, or pneumothorax. Calcif ied granuloma left lower lung posteriorly. Pulmonary vascularity: Unremarkable. Heart/mediastinum: Cardiomediastinal silhouette is unremarkable. Stent graft present of the aortic ar ch. Musculoskeletal: No acute osseous pathology. IMPRESSION: No acute cardiopulmonary disease/process.
[2023-03-11 19:29] LABS: ALT 24 U/L (4-34); AST 35 U/L (14-36); African American GFR (CKD) >90 (>60 ml/min/1.73 sqM); Albumin 4.3 g/dL (3.5-5.0); Alkaline Phosphatase 65 U/L (38-126); Anion Gap 10 mmol/L; Blood Urea Nitrogen 14 mg/dL (7-17); Calcium 9.3 mg/dL (8.4-10.2); Carbon Dioxide 23 mmol/L (22-30); Chloride 99 mmol/L (98-107); Glucose 113 mg/dL (74-99); Non-African American GFR(CKD) 86 (>60 ml/min/1.73 sqM); Potassium 4.3 mmol/L (3.5-5.1); Sodium 132 mmol/L (137-145); Total Bilirubin 0.6 mg/dL (0.2-1.3); Total Protein 7.8 g/dL (6.3-8.2)
[2023-03-11 21:18] VITALS: BP 139/67; PULSE 92
--- NOTE | 2023-03-11 21:27 | ED ---
General Adult HPI - General Chief complaint: Upper Respiratory Infection Stated complaint: Body Aches, No Madhavi, General Weakness Time Seen by Provider: 03/11/23 18:42 Source: patient Mode of arrival: wheelchair - History of Present Illness Initial comments: Patient is 72-year-old female presents to the emergency department for upper respiratory symptoms. Patient has a dry cough, body aches, decreased appetite for the past 5 days. She has chills no fever. No chest pain or shortness of breath. Patient has a history of COPD and has had trouble controlling her cough. She has not been using her inhaler or nebulizer at home. She is on Tessalon Perles and doxycycline prescribed by her primary care provider couple days ago. Her family was recently sick with upper respiratory infection. No nausea or vomiting. - Related Data Home Medications Medication Instructions Recorded Confirmed Aspirin EC [Ecotrin] 81 mg PO DAILY 03/25/14 04/07/17 Cholecalciferol [Vitamin D3] 2,000 unit PO DAILY@1200 03/25/14 04/07/17 Docusate [Colace] 100 mg PO BID 03/25/14 04/07/17 Gabapentin [Neurontin] 400 mg PO HS 03/25/14 04/07/17 Metoprolol Tartrate [Lopressor] 25 mg PO BID 03/25/14 04/07/17 Warfarin [Coumadin] 5 mg PO SUMOWETHSA 03/25/14 04/07/17 oxyCODONE HCL [OxyIR] 5 mg PO HS 03/25/14 04/07/17 Atorvastatin [Lipitor] 20 mg PO HS 04/07/17 04/07/17 Warfarin [Coumadin] 7.5 mg PO TUFR 04/07/17 04/07/17 Previous Rx's Medication Instructions Recorded predniSONE 50 mg PO DAILY #5 tab 03/11/23 Allergies Allergy/AdvReac Type Severity Reaction Status Date / Time cefixime [From Suprax] Allergy Unknown Verified 03/11/23 18:35 diazepam [From Valium] Allergy Unknown Verified 03/11/23 18:35 ezetimibe [From Vytorin] Allergy Unknown Verified 03/11/23 18:35 hydroxychloroquine sulfate Allergy Unknown Verified 03/11/23 18:35 [From Plaquenil] morphine Allergy Unknown Verified 03/11/23 18:35 moxifloxacin HCl Allergy Unknown Verified 03/11/23 18:35 [From Avelox] Quinolones Allergy Unknown Verified 03/11/23 18:35 simvastatin [From Vytorin] Allergy Unknown Verified 03/11/23 18:35 steroid Allergy Rash/Hives Uncoded 04/07/17 11:18 Review of Systems ROS Statement: Those systems with pertinent positive or pertinent negative responses have been documented in the HPI. ROS Other: All systems not noted in ROS Statement are negative. 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 Absent: scleral icterus, conjunctival injection, periorbital swelling Respiratory exam: Present: decreased breath sounds. Absent: normal lung sounds bilaterally, respiratory distress, wheezes, rales, rhonchi, stridor Cardiovascular Exam: Present: regular rate, normal rhythm, normal heart sounds. Absent: systolic murmur, diastolic murmur, rubs, gallop, clicks GI/Abdominal exam: Present: soft, normal bowel sounds. Absent: distended, tenderness, guarding, rebound, rigid Neurological exam: Present: alert, oriented X3 Psychiatric exam: Present: normal affect, normal mood Skin exam: Present: warm, dry, intact, normal color. Absent: rash Course Vital Signs 03/11/23 03/11/23 03/11/23 18:32 19:15 20:12 Temperature 99.6 F Pulse Rate 89 96 101 H Respiratory 16 18 Rate Blood Pressure 158/74 O2 Sat by Pulse 95 95 Oximetry 03/11/23 03/11/23 20:24 21:00 Temperature Pulse Rate 97 92 Respiratory 18 Rate Blood Pressure 139/67 O2 Sat by Pulse 99 Oximetry Medical Decision Making - Medical Decision Making Was pt. sent in by a medical professional or institution (GLENN Rao, SALES SUPPORT REPRESENTATIVE, urgent care, hospital, or [facility]...) When possible be specific @ -No Did you speak to anyone other than the patient for history (EMS, parent, family, police, friend...)? What history was obtained from this source @ -No Did you review nursing and triage notes (agree or disagree)? Why? @ -I reviewed and agree with nursing and triage notes Were old charts reviewed (outside hosp., previous admission, EMS record, old EKG, old radiological studies, urgent care reports/EKG's, [facility] records)? Report findings @ -No old charts were reviewed Differential Diagnosis (chest pain, altered mental status, abdominal pain women, abdominal pain men, vaginal bleeding, weakness, fever, dyspnea, syncope, headach e, dizziness, GI bleed, back pain, seizure, CVA, palpatations, mental health)? @ -URI, sinusitus,strep pharyngitis, viral pharyngitis, pneumonia, bronchitis COPD exacerbation, -this list is not meant to be all-inclusive EKG interpreted by me (3pts min.). @ -As above X-rays interpreted by me (1pt min.). @ No acute cardiopulmonary process CT interpreted by me (1pt min.). @ -None done U/S interpreted by me (1pt. min.). @ -None done What testing was considered but not performed or refused? (CT, X-rays, U/S, labs)? Why? @ -None What meds were considered but not given or refused? Why? @ -None Did you discuss the management of the patient with other professionals (professionals i.e. GLENN Rao, SALES SUPPORT REPRESENTATIVE, lab, RT, psych nurse, social insurance administrator, rehab trainer, teacher, equal opportunity officer, case management coordinator)? Give summary @ -No Was smoking cessation discussed for >3mins.? @ -No Was critical care preformed (if so, how long)? @ -No Were there social determinants of health that impacted care today? How? (Homelessness, low income, unemployed, alcoholism, drug addiction, transportation, low edu. Level, literacy, decrease access to med. care, [facility], rehab)? @ -No Was there de-escalation of care discussed even if they declined (Discuss DNR or withdrawal of care, Hospice)? DNR status @ -No What co-morbidities impacted this encounter? (DM, HTN, Smoking, COPD, CAD, Can cer, CVA, ARF, Chemo, Hep., AIDS, mental health diagnosis, sleep apnea, morbid obesity)? @ -None Was patient admitted / discharged? Hospital course, mention meds given and route, prescriptions, significant lab abnormalities, going to OR and other pertinent info. @ Patient presenting for upper respiratory symptoms. Patient is well-appearing no evidence of respiratory distress. No hypoxia. Breath sounds are decreased no wheezing. Patient continues to cough during evaluation. After interpreted myself showing no acute cardiopulmonary process. Influenza A is detected. Other laboratory studies were relatively unremarkable. Patient treated with breathing treatment and Solu-Medrol. Her breath sounds and symptoms improved in the emergency department. Vitals are stable patient is in stable medical condition for discharge.Patient is out of window for Tamiflu. She will be discharged with prednisone and will continue her breathing treatments [id number] at home for COPD exacerbation. She is to follow-up with her primary care provider. Undiagnosed new problem with uncertain prognosis? @ -No Drug Therapy requiring intensive monitoring for toxicity (Heparin, Nitro, I nsulin, Cardizem)? @ -No Were any procedures done? @ -No Diagnosis/symptom? @ -Influenza, COPD exacerbation Acute, or Chronic, or Acute on Chronic? @ -[Acute Uncomplicated (without systemic symptoms) or Complicated (systemic symptoms)? @ Uncomplicated Side effects of treatment? @ -No Exacerbation, Progression, or Severe Exacerbation? @ -No Poses a threat to life or bodily function? How? (Chest pain, [place], [place], pneumonia, PE, COPD, DKA, ARF, appy, cholecystitis, CVA, Diverticulitis, Homicidal, Suicidal, threat to staff... and all critical care pts) @ -No Dr. Calderón is my attending - Lab Data Result diagrams: 03/11/23 18:43 03/11/23 18:43 Lab Results 03/11/23 03/11/23 03/11/23 Range/Units 18:43 18:43 19:26 WBC 6.4 (3.8-10.6) k/uL RBC 4.63 (3.80-5.40) m/uL Hgb 15.0 (11.4-16.0) gm/dL Hct 43.7 (34.0-46.0) % MCV 94.4 (80.0-100.0) fL MCH 32.5 (25.0-35.0) pg MCHC 34.4 (31.0-37.0) g/dL RDW 11.4 L (11.5-15.5) % Plt Count 200 (150-450) k/uL MPV 7.3 Neutrophils % 81 % Lymphocytes % 6 % Monocytes % 9 % Eosinophils % 0 % Basophils % 1 % Neutrophils # 5.2 (1.3-7.7) k/uL Lymphocytes # 0.4 L (1.0-4.8) k/uL Monocytes # 0.6 (0-1.0) k/uL Eosinophils # 0.0 (0-0.7) k/uL Basophils # 0.1 (0-0.2) k/uL Sodium 132 L (137-145) mmol/L Potassium 4.3 (3.5-5.1) mmol/L Chloride 99 (98-107) mmol/L Carbon Dioxide 23 (22-30) mmol/L Anion Gap 10 mmol/L BUN 14 (7-17) mg/dL Creatinine 0.72 (0.52-1.04) mg/dL Est GFR (CKD-EPI)AfAm >90 (>60 ml/min/1.73 sqM) Est GFR (CKD-EPI)NonAf 86 (>60 ml/min/1.73 sqM) Glucose 113 H (74-99) mg/dL Calcium 9.3 (8.4-10.2) mg/dL Total Bilirubin 0.6 (0.2-1.3) mg/dL AST 35 (14-36) U/L ALT 24 (4-34) U/L Alkaline Phosphatase 65 (38-126) U/L Total Protein 7.8 (6.3-8.2) g/dL Albumin 4.3 (3.5-5.0) g/dL Influenza Type A (PCR) Detected A (Not Detectd) Influenza Type B (PCR) Not Detected (Not Detectd) RSV (PCR) Not Detected (Not Detectd) SARS-CoV-2 (PCR) Not Detected (Not Detectd) Disposition Clinical Impression: Influenza Disposition: HOME SELF-CARE Condition: Good Instructions (If sedation given, give patient instructions): COPD (Chronic Obstructive Pulmonary Disease) (ED) Additional Instructions: Please do breathing treatments every 4 hours at home. Take prednisone as directed. Start prescription tomorrow. Follow-up with primary care provider in one to 2 days. Return to the emergency department if you experience new, concerning, or worsening symptoms. Prescriptions: predniSONE 50 mg PO DAILY #5 tab Is patient prescribed a controlled substance at d/c from ED?: No Referrals: Pilar Newman III, MD [Primary Care Provider] - 1-2 days
== END 2023-03-11 21:33 | disposition home or self-care (01) ==
LOC: EC 18:09
DX: J10.1 Influenza due to other identified influenza virus with other respiratory manifestations (principal); I25.10 Atherosclerotic heart disease of native coronary artery without angina pectoris; E78.5 Hyperlipidemia, unspecified; J44.9 Chronic obstructive pulmonary disease, unspecified; Z79.82 Long term (current) use of aspirin; Z79.01 Long term (current) use of anticoagulants; Z79.899 Other long term (current) drug therapy; Z88.1 Allergy status to other antibiotic agents; Z88.5 Allergy status to narcotic agent; Z88.8 Allergy status to other drugs, medicaments and biological substances; Z88.6 Allergy status to analgesic agent; Z20.822 Contact with and (suspected) exposure to COVID-19
CPT/HCPCS: 99283; 96374 ×2; 96361 ×2; 36415; 94640; 80053; 85025; 87636; 71046; 99285; J2930

== ENCOUNTER 2023-03-14 09:53 | Inpatient (IN) | payer MEDICARE, BC ==
[2023-03-14] MEDS ORDERED: SODIUM CHLORIDE 0.9% 1,000 ML IV ONE (10:03)
[2023-03-14 10:36] LABS: Basophils % (A) 0 %; Eosinophils % (A) 1 %; HCT 47.7 % (34.0-46.0); HGB 16.4 gm/dL (11.4-16.0); Lymphocytes # (A) 1.1 k/uL (1.0-4.8); Lymphocytes % (A) 20 %; MCHC 34.5 g/dL (31.0-37.0); MCV 92.7 fL (80.0-100.0); Monocytes # (A) 0.6 k/uL (0-1.0); Monocytes % (A) 11 %; Neutrophils # (A) 3.8 k/uL (1.3-7.7); Neutrophils % (A) 65 %; Platelet Count 204 k/uL (150-450); RBC 5.14 m/uL (3.80-5.40); RDW 11.3 % (11.5-15.5); WBC 5.8 k/uL (3.8-10.6)
[2023-03-14] MEDS ORDERED: DILTIAZEM DRIP BOLUS FROM BAG 1 MG SOLN IV ONE (10:43)
[2023-03-14 10:47] LABS: ALT 28 U/L (4-34); African American GFR (CKD) 81 (>60 ml/min/1.73 sqM); Albumin 3.8 g/dL (3.5-5.0); Anion Gap 12 mmol/L; Blood Urea Nitrogen 17 mg/dL (7-17); Calcium 8.6 mg/dL (8.4-10.2); Carbon Dioxide 19 mmol/L (22-30); Chloride 99 mmol/L (98-107); Glucose 91 mg/dL (74-99); Non-African American GFR(CKD) 70 (>60 ml/min/1.73 sqM); Sodium 130 mmol/L (137-145); Total Bilirubin 0.9 mg/dL (0.2-1.3)
[2023-03-14] MEDS: DILTIAZEM 125 MG in SODIUM CHLORIDE 0.9% 100 ML IV SCH ×2 (10:50→16:33)
[2023-03-14 10:56] LABS: Magnesium 1.9 mg/dL (1.6-2.3)
[2023-03-14 10:57] LABS: AST 52 U/L (14-36); Alkaline Phosphatase 78 U/L (38-126)
[2023-03-14 11:04] LABS: Partial Thromboplastin Time 23.6 sec (22.0-30.0); Prothrombin Time 10.2 sec (9.0-12.0)
--- NOTE | 2023-03-14 11:36 | ED ---
Arrhythmia/Palpitations HPI - General Chief Complaint: Arrhythmia/Palpitations Stated Complaint: diarrhea Time Seen by Provider: 03/14/23 10:00 Source: patient, EMS Mode of arrival: EMS Limitations: no limitations - History of Present Illness Initial Comments: 72-year-old female with past medical history of MTHFR, factor V, fibromyalgia who presents to the emergency department reporting nausea, vomiting, diarrhea and cough. She was seen in the emergency department on the eighth and was diagnosed with influenza A. States that she has not been able to eat or drink or take any of her medications since her symptoms started. She has had some weight loss. She has been on prednisone for her cough. She was not a candidate for Tamiflu. She denies any fevers. No abdominal pain. EMS was called to the house with the patient had a rapid heart rate. Denies any history of irregular heart rhythms to include A. fib. She is on anticoagulation because of her clotting disorders however states she has not taken this medication in 4 days. 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 - Related Data Home Medications Medication Instructions Recorded Confirmed Docusate [Colace] 100 mg PO BID 03/25/14 03/14/23 Metoprolol Tartrate [Lopressor] 12.5 mg PO BID 03/25/14 03/14/23 oxyCODONE HCL [OxyIR] 5 mg PO HS 03/25/14 03/14/23 Atorvastatin [Lipitor] 20 mg PO HS 03/14/23 03/14/23 Cholecalciferol [Vitamin D3 (25 100 mcg PO DAILY 03/14/23 03/14/23 Mcg = 1000 Iu)] Clindamycin Topical Soln 1 applic TOPICAL BID 03/14/23 03/14/23 [Cleocin-T Topical Soln] Gabapentin [Neurontin] 400 mg PO HS 03/14/23 03/14/23 Rivaroxaban [Xarelto] 20 mg PO W/SUPPER 03/14/23 03/14/23 predniSONE 50 mg PO DIRECTED 03/14/23 03/14/23 Allergies Allergy/AdvReac Type Severity Reaction Status Date / Time cefixime [From Suprax] Allergy Unknown Verified 03/14/23 13:21 diazepam [From Valium] Allergy Unknown Verified 03/14/23 13:21 ezetimibe [From Vytorin] Allergy Unknown Verified 08/11/23 13:21 hydroxychloroquine sulfate Allergy Unknown Verified 03/14/23 13:21 [From Plaquenil] morphine Allergy Unknown Verified 03/14/23 13:21 moxifloxacin HCl Allergy Unknown Verified 03/14/23 13:21 [From Avelox] Quinolones Allergy Unknown Verified 03/14/23 13:21 simvastatin [From Vytorin] Allergy Unknown Verified 03/14/23 13:21 steroid Allergy Rash/Hives Uncoded 03/14/23 13:21 Review of Systems ROS Statement: Those systems with pertinent positive or pertinent negative responses have been documented in the HPI. ROS Other: All systems not noted in ROS Statement are negative. 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 History of Any Multi-Drug Resistant Organisms: None Reported Past Surgical History: Heart Catheterization, Heart Catheterization With Stent, Hysterectomy, Tubal Ligation Additional Past Surgical History / Comment(s): subclavian to carotid bypass, hemorrhectomy, bilateral breast lumpectomy, epicondyle release both elbow, lap harriett, left ring finger, bladder suspension Past Psychological History: No Psychological Hx Reported Smoking Status: Current some day smoker Past Alcohol Use History: None Reported Past Drug Use History: None Reported General Exam Limitations: no limitations General appearance: alert, in no apparent distress Head exam: Present: atraumatic, normocephalic, normal inspection Eye exam: Present: normal appearance, PERRL, EOMI. Absent: scleral icterus, conjunctival injection, periorbital swelling ENT exam: Present: normal exam, mucous membranes moist Neck exam: Present: normal inspection. Absent: tenderness, meningismus, lymphadenopathy Respiratory exam: Present: normal lung sounds bilaterally. Absent: respiratory distress, wheezes, rales, rhonchi, stridor Cardiovascular Exam: Present: tachycardia, irregular rhythm, normal heart sounds. Absent: systolic murmur, diastolic murmur, rubs, gallop, clicks GI/Abdominal exam: Present: soft, normal bowel sounds. Absent: distended, tenderness, guarding, rebound, rigid Extremities exam: Present: normal inspection, full ROM, normal capillary refill. Absent: tenderness, pedal edema, joint swelling, calf tenderness Back exam: Present: normal inspection Neurological exam: Present: alert, oriented X3, CN II-XII intact Psychiatric exam: Present: normal affect, normal mood Skin exam: Present: warm, dry, intact, normal color. Absent: rash Course Vital Signs 03/14/23 03/14/23 03/14/23 09:58 12:16 12:30 Temperature 98.1 F Pulse Rate 170 H 140 H 120 H Respiratory 20 20 20 Rate Blood Pressure 129/85 105/64 117/52 O2 Sat by Pulse 96 95 Oximetry 03/14/23 15:14 Temperature 97.8 F Pulse Rate 130 H Respiratory 20 Rate Blood Pressure 122/64 O2 Sat by Pulse 97 Oximetry - Reevaluation(s) Reevaluation #1: Spoke with Dr. Gomes. States that the patient's heart rate will be diff icult to control as it is secondary to her influenza and dehydration. States that the patient can be moved up to Cardizem 20 mg. Recommend adding dig with a loading dose of 250 g today and starting on 125 g tomorrow. 03/14/23 0181 Medical Decision Making - Medical Decision Making Was pt. sent in by a medical professional or institution (, PA, [employer]ER PUMP OILER, urgent care, hospital, or long-term...) When possible be specific @ -No Did you speak to anyone other than the patient for history (EMS, parent, family, police, friend...)? What history was obtained from this source @ -Spoke with the patient's daughters in regards to symptoms as well as EMS Did you review nursing and triage notes (agree or disagree)? Why? @ -I reviewed and agree with nursing and triage notes Were old charts reviewed (outside hosp., previous admission, EMS record, old EKG, old radiological studies, urgent care reports/EKG's, long-term records)? Report findings @ -I reviewed the patient's ED record from the eighth where she was seen and diagnosed with influenza A Differential Diagnosis (chest pain, altered mental status, abdominal pain women, abdominal pain men, vaginal bleeding, weakness, fever, dyspnea, syncope, headache, dizziness, GI bleed, back pain, seizure, CVA, palpatations, mental health, musculoskeletal)? @ -Differential Palpitations Ventricular arrhythmias, atrial arrhythmias, myocardial infarction, anemia, thyrotoxicosis, electrolyte imbalance, hypokalemia, pulmonary embolism, pulmonary disease, drugs, alcohol, anxiety, stress.... This is not meant to be an all-inclusive list. EKG interpreted by me (3pts min.). @ -Yes, and demonstrates a flutter with a rate of 178. QRS 71. QTC of 343. Diffuse ST depression 2, 3, aVF, V4 through V6. ST elevation in aVR X-rays interpreted by me (1pt min.). @ -Yes and demonstrates no acute process CT interpreted by me (1pt min.). @ -None done U/S interpreted by me (1pt. min.). @ -None done What testing was considered but not performed or refused? (CT, X-rays, U/S, labs)? Why? @ -None What meds were considered but not given or refused? Why? @ -Pain medications however the patient states the only thing she can tolerate his Percocet and she cannot tolerate oral medications at this time Did you discuss the management of the patient with other professionals (professionals i.e. , PA, [employer] O[employer]ER, lab, RT, psych nurse, perinatal social worker, senior sql server database developer, teacher, loans officer, machine adjuster leader case trim)? Give summary @ -Yes, spoke with Dr. Amor due to her persistent elevated heart rate Was smoking cessation discussed for >3mins.? @ -No Was critical care preformed (if so, how long)? @ -Yes, 35 minutes for management of A. fib with RVR new onset Were there social determinants of health that impacted care today? How? (Homelessness, low income, unemployed, alcoholism, drug addiction, transportation, low edu. Level, literacy, decrease access to med. care, shelter, rehab)? @ -No Was there de-escalation of care discussed even if they declined (Discuss DNR or withdrawal of care, Hospice)? DNR status @ -No What co-morbidities impacted this encounter? (DM, HTN, Smoking, COPD, CAD, Cancer, CVA, ARF, Chemo, Hep., AIDS, mental health diagnosis, sleep apnea, morbid obesity)? @ -MTHFR, factor V Was patient admitted / discharged? Hospital course, mention meds given and route, prescriptions, significant lab abnormalities, going to OR and other pertinent info. @ -Upon arrival patient was placed into room 15. A thorough history and physical exam was performed. Patient is placed on continuous pulse ox and cardiac monitoring. 12-lead EKG was obtained which demonstrates rapid heart rate with suspected A. fib. IV is established and laboratory studies were conducted. She is given a liter bolus normal saline followed by maintenance fluids per hour. Patient given a dose of Zofran. Laboratory studies are conducted and reviewed. She is started on a Cardizem drip. Recommended admission due to difficult heart rate to control for which she was agreeable. She is arty anticoagulated on home medications. Patient does max out on Cardene drip. Called and spoke with Dr. Amor who recommends that the drip be increased to 20 mg per hour with the addition of digoxin. These orders are initiated. Patient was agreeable to admission. Spoke with Dr. Wynn who agreed to admit the patient Undiagnosed new problem with uncertain prognosis? @ -Yes Drug Therapy requiring intensive monitoring for toxicity (Heparin, Nitro, Insulin, Cardizem)? @ -Cardizem Were any procedures done? @ -No Diagnosis/symptom? @ -Acute nausea vomiting, acute A. fib with RVR, influenza A, acute hypon atremia Acute, or Chronic, or Acute on Chronic? @ -Acute Uncomplicated (without systemic symptoms) or Complicated (systemic symptoms)? @ -Complicated Side effects of treatment? @ -No Exacerbation, Progression, or Severe Exacerbation? @ -No Poses a threat to life or bodily function? How? (Chest pain, [place], [place], pneumonia, PE, COPD, DKA, ARF, appy, cholecystitis, CVA, Diverticulitis, Homicidal, Suicidal, threat to staff... and all critical care pts) @ -Yes, patient has excessively elevated heart rate - Lab Data Result diagrams: 03/14/23 10:22 03/14/23 10:22 Lab Results 03/14/23 03/14/23 03/14/23 Range/Units 10:22 10:22 10:22 WBC 5.8 (3.8-10.6) k/uL RBC 5.14 (3.80-5.40) m/uL Hgb 16.4 H (11.4-16.0) gm/dL Hct 47.7 H (34.0-46.0) % MCV 92.7 (80.0-100.0) fL MCH 32.0 (25.0-35.0) pg MCHC 34.5 (31.0-37.0) g/dL RDW 11.3 L (11.5-15.5) % Plt Count 204 (150-450) k/uL MPV 8.0 Neutrophils % 65 % Lymphocytes % 20 % Monocytes % 11 % Eosinophils % 1 % Basophils % 0 % Neutrophils # 3.8 (1.3-7.7) k/uL Lymphocytes # 1.1 (1.0-4.8) k/uL Monocytes # 0.6 (0-1.0) k/uL Eosinophils # 0.0 (0-0.7) k/uL Basophils # 0.0 (0-0.2) k/uL PT 10.2 (9.0-12.0) sec INR 1.0 (<1.2) APTT 23.6 (22.0-30.0) sec Sodium 130 L (137-145) mmol/L Potassium 4.0 (3.5-5.1) mmol/L Chloride 99 (98-107) mmol/L Carbon Dioxide 19 L (22-30) mmol/L Anion Gap 12 mmol/L BUN 17 (7-17) mg/dL Creatinine 0.85 (0.52-1.04) mg/dL Est GFR (CKD-EPI)AfAm 81 (>60 ml/min/1.73 sqM) Est GFR (CKD-EPI)NonAf 70 (>60 ml/min/1.73 sqM) Glucose 91 (74-99) mg/dL Calcium 8.6 (8.4-10.2) mg/dL Magnesium 1.9 (1.6-2.3) mg/dL Total Bilirubin 0.9 (0.2-1.3) mg/dL AST 52 H (14-36) U/L ALT 28 (4-34) U/L Alkaline Phosphatase 78 (38-126) U/L Troponin I (0.000-0.034) ng/mL Total Protein 7.0 (6.3-8.2) g/dL Albumin 3.8 (3.5-5.0) g/dL TSH 0.810 (0.465-4.680) mIU/L Urine Color Urine Appearance (Clear) Urine pH (5.0-8.0) Ur Specific [place] (1.001-1.035) Urine Protein (Negative) Urine Glucose (UA) (Negative) Urine Ketones (Negative) Urine Blood (Negative) Urine Nitrite (Negative) Urine Bilirubin (Negative) Urine Urobilinogen (<2.0) mg/dL Ur Leukocyte Esterase (Negative) 03/14/23 03/14/23 Range/Units 10:22 11:37 WBC (3.8-10.6) k/uL RBC (3.80-5.40) m/uL Hgb (11.4-16.0) gm/dL Hct (34.0-46.0) % MCV (80.0-100.0) fL MCH (25.0-35.0) pg MCHC (31.0-37.0) g/dL RDW (11.5-15.5) % Plt Count (150-450) k/uL MPV Neutrophils % % Lymphocytes % % Monocytes % % Eosinophils % % Basophils % % Neutrophils # (1.3-7.7) k/uL Lymphocytes # (1.0-4.8) k/uL Monocytes # (0-1.0) k/uL Eosinophils # (0-0.7) k/uL Basophils # (0-0.2) k/uL PT (9.0-12.0) sec INR (<1.2) APTT (22.0-30.0) sec Sodium (137-145) mmol/L Potassium (3.5-5.1) mmol/L Chloride (98-107) mmol/L Carbon Dioxide (22-30) mmol/L Anion Gap mmol/L BUN (7-17) mg/dL Creatinine (0.52-1.04) mg/dL Est GFR (CKD-EPI)AfAm (>60 ml/min/1.73 sqM) Est GFR (CKD-EPI)NonAf (>60 ml/min/1.73 sqM) Glucose (74-99) mg/dL Calcium (8.4-10.2) mg/dL Magnesium (1.6-2.3) mg/dL Total Bilirubin (0.2-1.3) mg/dL AST (14-36) U/L ALT (4-34) U/L Alkaline Phosphatase (38-126) U/L Troponin I 0.012 (0.000-0.034) ng/mL Total Protein (6.3-8.2) g/dL Albumin (3.5-5.0) g/dL TSH (0.465-4.680) mIU/L Urine Color Colorless Urine Appearance Clear (Clear) Urine pH 6.5 (5.0-8.0) Ur Specific [place] 1.003 (1.001-1.035) Urine Protein Negative (Negative) Urine Glucose (UA) Negative (Negative) Urine Ketones Negative (Negative) Urine Blood Negative (Negative) Urine Nitrite Negative (Negative) Urine Bilirubin Negative (Negative) Urine Urobilinogen <2.0 (<2.0) mg/dL Ur Leukocyte Esterase Negative (Negative) Disposition Clinical Impression: New onset a-fib, Influenza A, Nausea and vomiting, Hyponatremia Disposition: ADMITTED IP TO THIS [facility] Condition: Serious Is patient prescribed a controlled substance at d/c from ED?: No Time of Disposition: 13:18 Decision to Admit Reason: Admit from EC Decision Date: 03/14/23 Decision Time: 13:18
[2023-03-14 11:42] LABS: Appearance,Urine Clear (Clear); Bilirubin,Urine Negative (Negative); Blood,Urine Negative (Negative); Color,Urine Colorless; Glucose,Urine (UA) Negative (Negative); Ketones,Urine Negative (Negative); Leukocyte Esterase,Urine Negative (Negative); Nitrite,Urine Negative (Negative); PH, Urine 6.5 (5.0-8.0); Protein,Urine Negative (Negative); Specific Gravity,Urine 1.003 (1.001-1.035); Urobilinogen,Urine <2.0 mg/dL (<2.0)
--- NOTE | 2023-03-14 12:10 | XR ---
EXAMINATION TYPE: XR chest 2V DATE OF EXAM: 03/14/2023 COMPARISON: 03/11/2023 HISTORY: Shortness of breath TECHNIQUE: Frontal and lateral views of the chest are obtained. FINDINGS: Scattered senescent parenchymal changes noted. Hyperinflation compatible with COPD. No evidence for infiltrate. No evidence for atelectasis. Heart size is stable. Mediastinal structures are stable and grossly unremarkable. No evidence for hilar prominence. Degenerative changes dorsal spine. IMPRESSION: 1. No evidence for acute pulmonary disease.
[2023-03-14] MEDS ORDERED: ONDANSETRON 4 MG/2 ML VIAL IVP STA (12:13)
[2023-03-14] MEDS ORDERED: NALOXONE 0.4 MG/ML 1 ML VIAL IV PRN (13:18)
[2023-03-14] MEDS ORDERED: ONDANSETRON 4 MG/2 ML VIAL IVP PRN (13:18)
[2023-03-14] MEDS ORDERED: DIGOXIN 250 MCG/ML 2 ML AMP IVP ONE ×2 (14:37→15:10)
[2023-03-14] MEDS: PANTOPRAZOLE 40 MG/10 ML VIAL IV SCH (16:16)
[2023-03-14] MEDS: SODIUM CHLORIDE 0.9% 1,000 ML IV SCH ×2 (16:17→22:30)
[2023-03-14] MEDS: predniSONE 50 MG TAB PO SCH (16:21)
[2023-03-14] MEDS ORDERED: RIVAROXABAN 20 MG TAB PO SCH (17:30)
[2023-03-14] MEDS: METOPROLOL TARTRATE 12.5 MG TAB PO SCH (19:55)
[2023-03-14] MEDS ORDERED: ATORVASTATIN 20 MG TAB PO SCH (21:00)
[2023-03-14] MEDS ORDERED: GABAPENTIN 400 MG CAP PO SCH (21:00)
[2023-03-15 04:05] VITALS: RESP 18
[2023-03-15] MEDS: DILTIAZEM 125 MG in SODIUM CHLORIDE 0.9% 100 ML IV SCH ×2 (04:06→10:46)
[2023-03-15] MEDS: SODIUM CHLORIDE 0.9% 1,000 ML IV SCH (06:47)
[2023-03-15] MEDS: METOPROLOL TARTRATE 12.5 MG TAB PO SCH (08:44)
[2023-03-15] MEDS: PANTOPRAZOLE 40 MG/10 ML VIAL IV SCH (08:44)
[2023-03-15] MEDS: predniSONE 50 MG TAB PO SCH (08:45)
[2023-03-15] MEDS ORDERED: CHOLECALCIFEROL 25 MCG (1000 IU) TABLET PO SCH (09:00)
[2023-03-15] MEDS ORDERED: DIGOXIN 125 MCG TAB PO SCH (09:00)
[2023-03-15 09:47] LABS: Basophils % (A) 0 %; Eosinophils % (A) 1 %; HCT 40.7 % (34.0-46.0); HGB 13.9 gm/dL (11.4-16.0); Lymphocytes % (A) 20 %; MCH 32.2 pg (25.0-35.0); MCHC 34.1 g/dL (31.0-37.0); MCV 94.5 fL (80.0-100.0); Monocytes # (A) 0.4 k/uL (0-1.0); Monocytes % (A) 8 %; Neutrophils # (A) 3.4 k/uL (1.3-7.7); Neutrophils % (A) 69 %; Platelet Count 164 k/uL (150-450); RBC 4.31 m/uL (3.80-5.40); RDW 11.5 % (11.5-15.5); WBC 4.8 k/uL (3.8-10.6)
[2023-03-15 09:55] LABS: African American GFR (CKD) >90 (>60 ml/min/1.73 sqM); Anion Gap 8 mmol/L; Blood Urea Nitrogen 11 mg/dL (7-17); Calcium 7.9 mg/dL (8.4-10.2); Carbon Dioxide 21 mmol/L (22-30); Chloride 104 mmol/L (98-107); Glucose 100 mg/dL (74-99); Non-African American GFR(CKD) 81 (>60 ml/min/1.73 sqM); Potassium 3.3 mmol/L (3.5-5.1); Sodium 133 mmol/L (137-145)
[2023-03-15] MEDS ORDERED: POTASSIUM CHLORIDE ER 10 MEQ TAB.ER.PRT PO STA (10:33)
[2023-03-15 10:43] VITALS: TEMP 98.2
--- NOTE | 2023-03-15 11:48 | P.CRDCN ---
History of Present Illness Consult date: 03/15/23 Reason for Consult (text): Atrial tachycardia History of present illness: This is Joselo Clarke NP, I'm dictating on behalf of Dr. Amor's H&P and A&P The patient was interviewed and examined. HPI: Patient is a 72-year-old female who presented to the hospital with acute nausea and vomiting, after being diagnosed with influenza a a few days ago. In the emergency department the patient was felt to be in atrial fibrillation, and was started on IV Cardizem and oral digoxin. Chart review included examination of the EKG which actually demonstrates atrial tachycardia. ROS: Patient is in isolation, chart review was completed only. EXAMINATION: Patient is in isolation, chart review was only completed. REVIEW OF LABS, ECG & MEDICAL DATA: LABS: White count 4.8, hemoglobin 13.9, platelets 164, sodium 133, potassium 3.3, B1 11, creatinine 0.75, calcium 7.9 EKG: Atrial tachycardia IMAGING: Chest x-ray completed 03/14/2023 demonstrates no evidence for acute pulmonary disease. VITALS: Temp 98.2, pulse 63, respirations 18, blood pressure 135/62, O2 saturation 95% on room air IMPRESSION: 1. Influenza A 2. Dehydration 3. Atrial tachycardia in the presence of dehydration PLAN: Discontinue IV Cardizem and oral digoxin. If atrial tachycardia recurs, we'll revisit treatment. Continue IV hydration. Further recommendations based on patient's clinical course. Thank you for the consult and allowing us to participate in the care of this patient. 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 History of Any Multi-Drug Resistant Organisms: None Reported Past Surgical History: Heart Catheterization, Heart Catheterization With Stent, Hysterectomy, Tubal Ligation Additional Past Surgical History / Comment(s): subclavian to carotid bypass, hemorrhectomy, bilateral breast lumpectomy, epicondyle release both elbow, lap harriett, left ring finger, bladder suspension Date of Last Stent Placement:: 2009 Past Psychological History: No Psychological Hx Reported Smoking Status: Current some day smoker Past Alcohol Use History: None Reported Past Drug Use History: None Reported Medications and Allergies Home Medications Medication Instructions Recorded Confirmed Type Docusate [Colace] 100 mg PO BID 03/25/14 03/14/23 History Metoprolol Tartrate [Lopressor] 12.5 mg PO BID 03/25/14 03/14/23 History oxyCODONE HCL [OxyIR] 5 mg PO HS 03/25/14 03/14/23 History Atorvastatin [Lipitor] 20 mg PO HS 03/14/23 03/14/23 History Cholecalciferol [Vitamin D3 (25 100 mcg PO DAILY 03/14/23 03/14/23 History Mcg = 1000 Iu)] Clindamycin Topical Soln 1 applic TOPICAL BID 03/14/23 03/14/23 History [Cleocin-T Topical Soln] Gabapentin [Neurontin] 400 mg PO HS 03/14/23 03/14/23 History Rivaroxaban [Xarelto] 20 mg PO W/SUPPER 03/14/23 03/14/23 History predniSONE 50 mg PO DIRECTED 03/14/23 03/14/23 History Allergies Allergy/AdvReac Type Severity Reaction Status Date / Time cefixime [From Suprax] Allergy Unknown Verified 03/14/23 13:21 diazepam [From Valium] Allergy Unknown Verified 03/14/23 13:21 ezetimibe [From Vytorin] Allergy Unknown Verified 03/14/23 13:21 hydroxychloroquine sulfate Allergy Unknown Verified 03/14/23 13:21 [From Plaquenil] morphine Allergy Unknown Verified 03/14/23 13:21 moxifloxacin HCl Allergy Unknown Verified 03/14/23 13:21 [From Avelox] Quinolones Allergy Unknown Verified 03/14/23 13:21 simvastatin [From Vytorin] Allergy Unknown Verified 03/14/23 13:21 steroid Allergy Rash/Hives Uncoded 03/14/23 13:21 Physical Exam Vitals: Vital Signs Temp Pulse Pulse Resp BP BP Pulse Ox 03/15/23 08:40 98.2 F 63 18 135/62 95 03/15/23 04:00 56 L 18 108/59 94 L 03/14/23 23:42 51 L 19 91/52 94 L 03/14/23 20:00 97.9 F 82 19 100/57 94 L 03/14/23 16:00 116 H 18 95/56 97 03/14/23 15:14 97.8 F 130 H 20 122/64 97 03/14/23 14:30 155 H 18 98/58 97 03/14/23 13:30 140 H 20 100/58 97 03/14/23 12:30 120 H 20 117/52 95 03/14/23 12:16 140 H 20 105/64 96 Intake and Output 03/14/23 03/15/23 03/15/23 22:59 06:59 14:59 Intake Total 300.75 Balance 300.75 Intake: Intake, IV Titration 60.75 Amount Diltiazem 125 mg In 60.75 Sodium Chloride 0.9% 100 ml @ 20 MG/HR 20 mls/hr IV .Q6H15M LOKI Rx#: [id number] Oral 240 Other: # Voids 1 2 Weight 45.813 kg Results 03/15/23 09:17 03/15/23 09:17 CBC 03/15/23 Range/Units 09:17 WBC 4.8 (3.8-10.6) k/uL RBC 4.31 (3.80-5.40) m/uL Hgb 13.9 (11.4-16.0) gm/dL Hct 40.7 (34.0-46.0) % Plt Count 164 (150-450) k/uL Comprehensive Metabolic Panel 03/15/23 Range/Units 09:17 Sodium 133 L (137-145) mmol/L Potassium 3.3 L (3.5-5.1) mmol/L Chloride 104 (98-107) mmol/L Carbon Dioxide 21 L (22-30) mmol/L BUN 11 (7-17) mg/dL Creatinine 0.75 (0.52-1.04) mg/dL Glucose 100 H (74-99) mg/dL Calcium 7.9 L (8.4-10.2) mg/dL Current Medications Generic Name Dose Route Start Last Admin Trade Name Freq PRN Reason Stop Dose Admin Atorvastatin Calcium 20 mg 03/14/23 21:00 03/14/23 19:56 Atorvastatin 20 Mg Tab PO 20 mg HS LOKI Administration Cholecalciferol 100 mcg 03/15/23 09:00 03/15/23 08:44 Cholecalciferol 25 Mcg (1000 Iu) Tablet PO 100 mcg DAILY LOKI Administration Gabapentin 400 mg 03/14/23 21:00 03/14/23 19:56 Gabapentin 400 Mg Cap PO 400 mg HS LOKI Administration Sodium Chloride 1,000 mls @ 130 mls/hr 03/14/23 13:30 03/15/23 06:47 Saline 0.9% IV 130 mls/hr .Q7H42M LOKI Administration Metoprolol Tartrate 12.5 mg 03/14/23 21:00 03/15/23 08:44 Metoprolol Tartrate 12.5 Mg Tab PO 12.5 mg BID LOKI Administration Naloxone HCl 0.2 mg 03/14/23 13:18 Naloxone 0.4 Mg/Ml 1 Ml Vial IV Q2M PRN Opioid Reversal Ondansetron HCl 4 mg 03/14/23 13:18 Ondansetron 4 Mg/2 Ml Vial IVP Q8HR PRN Nausea And Vomiting Oxycodone HCl 5 mg 03/14/23 21:00 03/14/23 19:55 Oxycodone Hcl 5 Mg Tab PO 5 mg HS LOKI Administration Pantoprazole Sodium 40 mg 03/14/23 13:30 03/15/23 08:44 Pantoprazole 40 Mg/10 Ml Vial IV 40 mg DAILY LOKI Administration Prednisone 50 mg 03/14/23 16:15 03/15/23 08:45 Prednisone 50 Mg Tab PO 03/18/23 09:01 Not Given DAILY LOKI Rivaroxaban 20 mg 03/14/23 17:30 03/14/23 16:25 Rivaroxaban 20 Mg Tab PO 20 mg W/SUPPER LOKI Administration Protocol Intake and Output 03/14/23 03/15/23 03/15/23 22:59 06:59 14:59 Intake Total 300.75 Balance 300.75 Intake: Intake, IV Titration 60.75 Amount Diltiazem 125 mg In 60.75 Sodium Chloride 0.9% 100 ml @ 20 MG/HR 20 mls/hr IV .Q6H15M [facility]OKI Rx#: [id number] Oral 240 Other: # Voids 1 2 Weight 45.813 kg 03/15/23 09:17 03/15/23 09:17
[2023-03-15 12:47] VITALS: BP 128/70; PULSE 54
--- NOTE | 2023-03-15 13:41 | P.HPIM ---
History of Present Illness H&P Date: 03/15/23 History of present illness; patient is a 72-year-old lady with past medical hist ory significant for factor V deficiency, fibromyalgia who presented to the ER because of nausea vomiting and diarrhea. Patient was recently seen in the ER and found to have influenza A, was discharged on prednisone. Patient states ever since her discharge she has not been eating and drinking, patient was not able to take her xarelto and Lopressor. Patient has been complaining of increased weakness, patient has lost 6 pounds in the last few days. Because of this worsening symptoms, family called EMS and when EMS arrived. Patient Was found with A. fib with RVR. Initial lab work done in the ER showed WBC 5.8, hemoglobin 16.4, platelet count 204, sodium 1:30, potassium 4, BUN 17, creatinine 0.85, AST 52, AST 28, EKG done in the ER showed ventricle with a 178, QRS 71, narrow complex tach ycardia, irregular in rate and rhythm, A. fib and RVR, ST segment depression noticeable in V4 V5 and V6 leads Chest x-ray done in the ER no evidence for acute pulmonary disease Patient admitted to medicine service REVIEW OF SYSTEMS: CONSTITUTIONAL: As mentioned in HPI HEENT: No recent visual problems or hearing problems. Denied any sore throat. CARDIOVASCULAR: As mentioned in HPI PULMONARY: As mentioned in HPI GASTROINTESTINAL: No diarrhea, no nausea, no vomiting, no abdominal pain. NEUROLOGICAL: No headaches, no weakness, no numbness. HEMATOLOGICAL: Denies any bleeding or petechiae. GENITOURINARY: Denies any burning micturition, frequency, or urgency. MUSCULOSKELETAL/RHEUMATOLOGICAL: Denies any joint pain, swelling, or any muscle pain. ENDOCRINE: Denies any polyuria or polydipsia. The rest of the 14-point review of systems is negative. PHYSICAL EXAMINATION: GENERAL: The patient is alert and oriented x3, not in any acute distress. Well developed, well nourished. HEENT: Pupils are round and equally reacting to light. EOMI. No scleral icterus. No conjunctival pallor. Normocephalic, atraumatic. No pharyngeal erythema. No thyromegaly. CARDIOVASCULAR: S1 and S2 present. No murmurs, rubs, or gallops. Tachycardic, irregular in rate and rhythm PULMONARY: Chest is clear to auscultation, no wheezing or crackles. ABDOMEN: Soft, nontender, nondistended, normoactive bowel sounds. No palpable organomegaly. MUSCULOSKELETAL: No joint swelling or deformity. EXTREMITIES: No cyanosis, clubbing, or pedal edema. NEUROLOGICAL: Gross neurological examination did not reveal any focal deficits. SKIN: No rashes. Assessment and plan A. fib with RVR Influenza a Hyperlipidemia Factor V deficiency Monitor vital signs Monitor CBC Monitor CMP Isolation precautions Continue telemetry monitoring Continue Cardizem drip Resume Xarelto resume Lopressor Cardiology consulted Labs and medication were reviewed.. Continue same treatment. Continue with symptomatic treatment. Resume home medication. Monitor labs and vitals. DVT and GI prophylaxis. Further recommendations as per clinical course of the patient Dictation was produced using [employer] dictation software. please excuse any grammatical, word or spelling errors. Past Medical History Past Medical History: Coronary Artery Disease (CAD), COPD, Hyperlipidemia Additional Past Medical History / Comment(s): MTHFR, factor V lyden, chronic n erve pain to left shoulder History of Any Multi-Drug Resistant Organisms: None Reported Past Surgical History: Heart Catheterization, Heart Catheterization With Stent, Hysterectomy, Tubal Ligation Additional Past Surgical History / Comment(s): subclavian to carotid bypass, hemorrhectomy, bilateral breast lumpectomy, epicondyle release both elbow, lap harriett, left ring finger, bladder suspension Date of Last Stent Placement:: 2009 Past Psychological History: No Psychological Hx Reported Smoking Status: Current some day smoker Past Alcohol Use History: None Reported Past Drug Use History: None Reported Medications and Allergies Home Medications Medication Instructions Recorded Confirmed Type Docusate [Colace] 100 mg PO BID 03/25/14 03/14/23 History Metoprolol Tartrate [Lopressor] 12.5 mg PO BID 03/25/14 03/14/23 History oxyCODONE HCL [OxyIR] 5 mg PO HS 03/25/14 03/14/23 History Atorvastatin [Lipitor] 20 mg PO HS 03/14/23 03/14/23 History Cholecalciferol [Vitamin D3 (25 100 mcg PO DAILY 03/14/23 03/14/23 History Mcg = 1000 Iu)] Clindamycin Topical Soln 1 applic TOPICAL BID 03/14/23 03/14/23 History [Cleocin-T Topical Soln] Gabapentin [Neurontin] 400 mg PO HS 03/14/23 03/14/23 History Rivaroxaban [Xarelto] 20 mg PO W/SUPPER 03/14/23 03/14/23 History predniSONE 50 mg PO DIRECTED 03/14/23 03/14/23 History Allergies Allergy/AdvReac Type Severity Reaction Status Date / Time cefixime [From Suprax] Allergy Unknown Verified 03/14/23 13:21 diazepam [From Valium] Allergy Unknown Verified 03/14/23 13:21 ezetimibe [From Vytorin] Allergy Unknown Verified 03/14/23 13:21 hydroxychloroquine sulfate Allergy Unknown Verified 03/14/23 13:21 [From Plaquenil] morphine Allergy Unknown Verified 03/14/23 13:21 moxifloxacin HCl Allergy Unknown Verified 03/14/23 13:21 [From Avelox] Quinolones Allergy Unknown Verified 03/14/23 13:21 simvastatin [From Vytorin] Allergy Unknown Verified 03/14/23 13:21 steroid Allergy Rash/Hives Uncoded 03/14/23 13:21 Physical Exam Vitals: Vital Signs Temp Pulse Pulse Resp BP BP Pulse Ox 03/15/23 04:00 56 L 18 108/59 94 L 03/14/23 23:42 51 L 19 91/52 94 L 03/14/23 20:00 97.9 F 82 19 100/57 94 L 03/14/23 16:00 116 H 18 95/56 97 03/14/23 15:14 97.8 F 130 H 20 122/64 97 03/14/23 14:30 155 H 18 98/58 97 03/14/23 13:30 140 H 20 100/58 97 03/14/23 12:30 120 H 20 117/52 95 03/14/23 12:16 140 H 20 105/64 96 Intake and Output 03/14/23 03/15/23 03/15/23 22:59 06:59 14:59 Intake Total 300.75 Balance 300.75 Intake: Intake, IV Titration 60.75 Amount Diltiazem 125 mg In 60.75 Sodium Chloride 0.9% 100 ml @ 20 MG/HR 20 mls/hr IV .Q6H15M [facility] Rx#: [id number] Oral 240 Other: # Voids 1 2 Weight 45.813 kg Results CBC & Chem 7: 03/15/23 09:17 03/15/23 09:17 Labs: Abnormal Lab Results - Last 24 Hours (Table) 03/14/23 03/15/23 Range/Units 10:22 09:17 Sodium 130 L 133 L (137-145) mmol/L Potassium 3.3 L (3.5-5.1) mmol/L Carbon Dioxide 19 L 21 L (22-30) mmol/L Glucose 100 H (74-99) mg/dL Calcium 7.9 L (8.4-10.2) mg/dL AST 52 H (14-36) U/L Thrombosis Risk Factor Assmnt - Choose All That Apply Any of the Below Risk Factors Present?: Yes Each Factor Represents 1 point: Abnormal pulmonary function (COPD) Other Risk Factors: Yes Each Risk Factor Represents 2 Points: Age 61-74 years Each Risk Factor Represents 3 Points: Positive Factor V Leiden Other congenital or acquired thrombophilia - If yes, enter type in comment: No Thrombosis Risk Factor Assessment Total Risk Factor Score: 6 Thrombosis Risk Factor Assessment Level: High Risk
--- NOTE | 2023-03-18 09:38 | P.DS ---
Providers Date of admission: 03/14/23 13:18 Expected date of discharge: 03/18/23 Attending physician: Tanner Wynn MD Consults: 03/14/23 13:18 Consult Physician Urgent Consulting Provider: [facility] Consult Reason/Comments: new onset afib Do you want consulting provider notified?: Yes Primary care physician: [facility] Course: Discharge diagnoses; A. fib with RVR Influenza a Hyperlipidemia Factor V deficiency Hospital course; patient is a 72-year-old lady with past medical history significant for factor V deficiency, fibromyalgia who presented to the ER because of nausea vomiting and diarrhea. Patient was recently seen in the ER and found to have influenza A, was discharged on prednisone. Patient states ever since her discharge she has not been eating and drinking, patient was not able to take her xarelto and Lopressor. Patient has been complaining of increased weakness, patient has lost 6 pounds in the last few days. Because of this worsening symptoms, family called EMS and when EMS arrived. Patient Was found with A. fib with RVR. Initial lab work done in the ER showed WBC 5.8, hemoglobin 16.4, platelet count 204, sodium 1:30, potassium 4, BUN 17, creatinine 0.85, AST 52, AST 28, EKG done in the ER showed ventricle with a 178, QRS 71, narrow complex tachycardia, irregular in rate and rhythm, A. fib and RVR, ST segment depression noticeable in V4 V5 and V6 leads Chest x-ray done in the ER no evidence for acute pulmonary disease Patient admitted to medicine service Patient seen and examined., Was evaluated by cardiology, patient was given IV fluids, A. fib with RVR resolved, patient was resumed back on current cardiac medications. Cardiology recommended keeping on current regimen, cleared patient for discharge PHYSICAL EXAMINATION: GENERAL: The patient is alert and oriented x3, not in any acute distress. Well developed, well nourished. HEENT: Pupils are round and equally reacting to light. EOMI. No scleral icterus. No conjunctival pallor. Normocephalic, atraumatic. No pharyngeal erythema. No thyromegaly. CARDIOVASCULAR: S1 and S2 present. No murmurs, rubs, or gallops. PULMONARY: Chest is clear to auscultation, no wheezing or crackles. ABDOMEN: Soft, nontender, nondistended, normoactive bowel sounds. No palpable organomegaly. MUSCULOSKELETAL: No joint swelling or deformity. EXTREMITIES: No cyanosis, clubbing, or pedal edema. NEUROLOGICAL: Gross neurological examination did not reveal any focal deficits. SKIN: No rashes. Dictation was produced using [employer] dictation software. please excuse any grammatical, word or spelling errors. Patient Condition at Discharge: Good Plan - Discharge Summary Discharge Rx Participant: No New Discharge Prescriptions: Continue oxyCODONE HCL [OxyIR] 5 mg PO HS Metoprolol Tartrate [Lopressor] 12.5 mg PO BID Docusate [Colace] 100 mg PO BID predniSONE 50 mg PO DIRECTED Cholecalciferol [Vitamin D3 (25 Mcg = 1000 Iu)] 100 mcg PO DAILY Rivaroxaban [Xarelto] 20 mg PO W/SUPPER Clindamycin Topical Soln [Cleocin-T Topical Soln] 1 applic TOPICAL BID Gabapentin [Neurontin] 400 mg PO HS Atorvastatin [Lipitor] 20 mg PO HS Discharge Medication List Docusate [Colace] 100 mg PO BID 03/25/14 [History] Metoprolol Tartrate [Lopressor] 12.5 mg PO BID 03/25/14 [History] oxyCODONE HCL [OxyIR] 5 mg PO HS 03/25/14 [History] Atorvastatin [Lipitor] 20 mg PO HS 03/14/23 [History] Cholecalciferol [Vitamin D3 (25 Mcg = 1000 Iu)] 100 mcg PO DAILY 03/14/23 [History] Clindamycin Topical Soln [Cleocin-T Topical Soln] 1 applic TOPICAL BID 03/14/23 [History] Gabapentin [Neurontin] 400 mg PO HS 03/14/23 [History] Rivaroxaban [Xarelto] 20 mg PO W/SUPPER 03/14/23 [History] predniSONE 50 mg PO DIRECTED 03/14/23 [History] Follow up Appointment(s)/Referral(s): Marcello Rangel DO [STAFF PHYSICIAN] - 1 Week Pilar Newman III, MD [Primary Care Provider] - 1-2 days Patient Instructions/Handouts: A-fib (Atrial Fibrillation) (DC) Discharge Disposition: HOME SELF-CARE
== END 2023-03-15 16:34 | disposition home or self-care (01) | DRG 194 ==
LOC: EC 09:53 → 3SCARD 13:18
PROVIDERS: ADMIT Internal Medicine; ATTEND Internal Medicine
DX: J10.1 Influenza due to other identified influenza virus with other respiratory manifestations (principal); D68.51 Activated protein C resistance; E87.1 Hypo-osmolality and hyponatremia; M79.7 Fibromyalgia; E78.5 Hyperlipidemia, unspecified; E86.0 Dehydration; J44.9 Chronic obstructive pulmonary disease, unspecified; E87.6 Hypokalemia; F17.200 Nicotine dependence, unspecified, uncomplicated; I25.10 Atherosclerotic heart disease of native coronary artery without angina pectoris; I48.91 Unspecified atrial fibrillation; Z79.899 Other long term (current) drug therapy; Z79.52 Long term (current) use of systemic steroids; Z79.01 Long term (current) use of anticoagulants
CPT/HCPCS: 36415; 71046; 80048; 80053; 81003; 83735; 84443; 84484; 85025; 85610; 85730; 93005; 96365; 96366; 99285; 99291

== ENCOUNTER → 2023-11-03 | Outpatient (CLI) | payer MEDICARE, BC ==
--- NOTE | 2023-11-05 07:45 | MM ---
Reason for Exam: Screening (asymptomatic). Last mammogram was performed 1 year(s) and 1 month(s) ago. Patient History: Menarche at age 15. First Full-Term at age 21. Left ovary removed at age 32. Right ovary removed at age 32. Hysterectomy at age 32. Postmenopausal. Other cancer, age 62. Estrogen for 4 years until age 54. Patient used Hormonal Contraceptives for 5 years. Benign Excisional Biopsy on the right side. Benign Excisional Biopsy on the left side. Maternal grandmother had breast cancer. Maternal aunt had breast cancer. Maternal aunt had breast cancer. Mother had breast cancer, age 74. Risk Values: Lupe 5 year model risk: 4.8%. NCI Lifetime model risk: 12.9%. Prior Study Comparison: 10/09/2020 Bilateral Screening Mammogram, [facility]. 10/10/2021 Bilateral Screening Mammogram, [facility]. 10/31/2022 Bilateral MG 3D screening mammo w/cad, [facility]. Tissue Density: The breasts are heterogeneously dense, which may obscure small masses. Findings: Analyzed By CAD. The pattern is symmetrical. No significant interval change is evident. Benign vascular calcifications present bilaterally. Upper left mediolateral oblique chronic nodularity is present in No suspicious groups of microcalcifications, spiculated or lobular masses, architectural distortion or other secondary signs of malignancy are mammographically apparent. Overall Assessment: Benign, BI-RAD 2 Management: Screening Mammogram of both breasts in 1 year. A negative mammogram report should not preclude additional follow up of suspicious palpable abnormalities. Patient should continue monthly self breast exam. A clinical breast exam by your physician is recommended on an annual basis and results should be correlated with mammographic findings. Electronically signed and approved by: Kenneth Guerra DO
== END | disposition home or self-care (01) ==
LOC: RADMAMWWP 06:50
PROVIDERS: ATTEND Internal Medicine
DX: Z12.31 Encounter for screening mammogram for malignant neoplasm of breast (principal); Z78.0 Asymptomatic menopausal state; Z80.3 Family history of malignant neoplasm of breast
CPT/HCPCS: 77063; 77067

== ENCOUNTER → 2023-11-05 | Outpatient (CLI) | payer MEDICARE, BC ==
[2023-11-05 12:53] LABS: African American GFR (CKD) 75 (>60 ml/min/1.73 sqM); Blood Urea Nitrogen 17 mg/dL (7-17); Non-African American GFR(CKD) 65 (>60 ml/min/1.73 sqM)
--- NOTE | 2023-11-05 14:51 | CT ---
EXAMINATION TYPE: CT angio neck DATE OF EXAM: 11/05/2023 COMPARISON: 03/25/2014 HISTORY: left sided stenosis CT DLP: 161.6 mGycm CONTRAST: CTA cervical carotids is performed and with IV Contrast, patient injected with 65 mL of Isovue 370. Contrast CTA of the cervical carotids was performed 3-D reconstruction imaging obtained at a separate workstation. Right carotid system: Mild plaque is seen of the right common carotid artery. There is mild plaque a lso noted at the carotid bulb. Estimated diameter reduction is approximately 50%. ECA is patent. Right vertebral artery appears unremarkable. Left carotid system: Mild plaque is seen of the left common carotid artery. There is mild plaque als o noted at the carotid bulb. Estimated diameter reduction is less than 25%. ECA is patent. Left ve rtebral artery appears unremarkable. IMPRESSION: 1. Estimated diameter reduction Right ICA 50% 2. Estimated diameter reduction Left ICA less than 25% NASCET criteria was used in interpretation of this exam?
== END | disposition home or self-care (01) ==
LOC: RADCTMAIN 12:00
PROVIDERS: ATTEND Surgery
DX: I65.29 Occlusion and stenosis of unspecified carotid artery (principal)
CPT/HCPCS: 82565; 84520; 70498; 36415; Q9967

== ENCOUNTER 2023-12-19 06:49 | Day surgery (SDC) | payer MEDICARE, BC ==
[2023-12-17 08:58] VITALS: BMI 20.5
[~2023-12-19 06:49] MED LIST: ASPIRIN 325 MG TAB PO PRN; EMPTY BAG 1 BAG with SODIUM CHLORIDE 0.9% 1,000 ML IV SCH; HEPARIN SODIUM,PORCINE (1 ML) 2,500 UNIT in SODIUM CHLORIDE 0.9% 250 ML IRRIGATION PRN; HEPARIN SODIUM,PORCINE 10,000 UNIT in SODIUM CHLORIDE 0.9% 1,000 ML IRRIGATION PRN; ZOLPIDEM 5 MG TAB PO PRN
[2023-12-19] MEDS: SODIUM CHLORIDE 0.9% 1,000 ML IV ONE (07:04)
[2023-12-19 07:37] VITALS: RESP 16; TEMP 98.1
[2023-12-19 07:58] LABS: Basophils # (A) 0.1 k/uL (0-0.2); Basophils % (A) 1 %; Eosinophils # (A) 0.3 k/uL (0-0.7); Eosinophils % (A) 4 %; HCT 47.2 % (34.0-46.0); HGB 15.5 gm/dL (11.4-16.0); Lymphocytes # (A) 2.1 k/uL (1.0-4.8); Lymphocytes % (A) 27 %; MCH 31.6 pg (25.0-35.0); MCHC 32.7 g/dL (31.0-37.0); MCV 96.7 fL (80.0-100.0); Monocytes # (A) 0.5 k/uL (0-1.0); Monocytes % (A) 6 %; Neutrophils # (A) 4.6 k/uL (1.3-7.7); Neutrophils % (A) 58 %; Platelet Count 265 k/uL (150-450); RBC 4.89 m/uL (3.80-5.40); RDW 11.9 % (11.5-15.5); WBC 7.9 k/uL (3.8-10.6)
[2023-12-19 08:07] LABS: African American GFR (CKD) 68 (>60 ml/min/1.73 sqM); Anion Gap 5 mmol/L; Blood Urea Nitrogen 17 mg/dL (7-17); Carbon Dioxide 29 mmol/L (22-30); Chloride 102 mmol/L (98-107); Glucose 87 mg/dL (74-99); Non-African American GFR(CKD) 59 (>60 ml/min/1.73 sqM); Potassium 4.4 mmol/L (3.5-5.1); Sodium 136 mmol/L (137-145)
[2023-12-19 08:08] LABS: Calcium 9.8 mg/dL (8.4-10.2)
[2023-12-19] MEDS ORDERED: LIDOCAINE 1% INJ 10MG/ML (20 ML MDV) ONE (08:29)
[2023-12-19] MEDS ORDERED: fentaNYL (PF) 50 MCG/ML 2 ML AMP ONE (08:29)
[2023-12-19] MEDS: MIDAZOLAM 2 MG/2 ML VIAL IVP ONE (08:44)
[2023-12-19] MEDS: fentaNYL (PF) 50 MCG/1 ML VIAL IVP ONE (08:44)
[2023-12-19] MEDS: LIDOCAINE 1% INJ 10MG/ML (20 ML MDV) SQ ONE (08:44)
[2023-12-19] MEDS: IOPAMIDOL-250 100ML BTL INTRAARTER ONE ×2 (09:07)
--- NOTE | 2023-12-19 09:21 | P.OP ---
Date of Procedure: 12/19/23 Preoperative Diagnosis: Left upper extremity weakness, numbness, carotid-subclavian bypass occlusion Left subclavian artery instent stenosis Postoperative Diagnosis: Same Left subclavian artery stent occlusion Procedure(s) Performed: Ultrasound guided right common femoral artery access Arch angiogram with selective right and left carotid angiogram Conscious sedation x 27 minutes Anesthesia: local Surgeon: Kenneth Cerrato Estimated Blood Loss (ml): 2 Pathology: none sent Condition: stable Disposition: PACU Indications for Procedure: 73-year-old female with history of left upper extremity arterial occlusive disease with previous subclavian artery stenting and left carotid to left subclavian artery bypass several years prior presented to the office secondary to numbness, weakness of the left upper extremity as well as some discomfort. She had an upper extremity arterial Doppler which demonstrated significant arterial occlusive disease of the left upper extremity with decreased wrist brachial index less than 0.5. She was then sent for CTA of the chest and neck which demonstrated occlusion of the carotid subclavian bypass with severe in- stent stenosis noted at the subclavian artery stent. Due to the history of her previous bypass as well as likely scar tissue and brachial plexus injury from her previous surgery we discussed options including aortogram with attempt at crossing the stent to revascularize that area especially since there was some flow through the stent. She presents today for such procedure. Operative Findings: Thrombosed carotid subclavian bypass and 100% occlusion of the subclavian artery stent Description of Procedure: Operative narrative: After written informed consent was obtained the patient all risks benefits competitions were described the patient is brought to the [facility] and laid in a supine position. The area of the groin was prepped and draped in the usual sterile fashion. Local anesthesia with moderate sedation was performed with continuous pulse ox monitoring and EKG monitoring. Utilizing ultrasound the right common femoral artery was visualized and shown to be patent without any significant plaque. Utilizing a multipurpose needle under ultrasound guidance the artery was accessed. Guidewire was placed followed by 6 Hungarian sheath. 035 Glidewire was then placed into the aortic arch followed by pigtail catheter. Angiogram was then obtained of the aorta. JR4 catheter was then placed and directed into the right and left carotid arteries and selective angiograms were obtained. Left subclavian artery appeared to be occluded at the stent and this was attempted to be crossed with an 035 Glidewire which was unsuccessful. Due to the likely occlusion of the stent being chronic the decision was made to forego any arm access for fear of dislodging any in-stent calcific disease, plaque and causing a stroke and therefore procedure was concluded. Once completed all guidewires, catheters and sheaths were removed, Vascade was placed and pressure was placed for hemostasis. Patient tolerated procedure well was sent to PACU for recovery. Plan: Due to the chronic occlusion of the left subclavian artery stent she will require a revision bypass of the carotid subclavian bypass in order to reestablish blood flow to the left arm. We will discuss this in the office including the risks and benefits.
[2023-12-19 14:21] VITALS: BP 151/76; PULSE 67
--- NOTE | 2023-12-19 15:58 | IR ---
EXAMINATION TYPE: IR angio aortic arch Intraoperative/procedural fluoroscopic services were provided. Total fluoroscopy time is not reported seconds with a total of not reported submitted images to [facility]. Please see the operative/procedural note for further details. DAP: not reported mGym2 Gycm2 uGym2 cGycm2
== END 2023-12-19 13:17 | disposition home or self-care (01) ==
LOC: CATHCVL 06:49
PROVIDERS: ATTEND Surgery
DX: I77.1 Stricture of artery (principal); Z88.5 Allergy status to narcotic agent; Z88.8 Allergy status to other drugs, medicaments and biological substances; Z90.710 Acquired absence of both cervix and uterus; Z90.89 Acquired absence of other organs; Z98.51 Tubal ligation status; Z79.01 Long term (current) use of anticoagulants; Z79.82 Long term (current) use of aspirin; Z79.899 Other long term (current) drug therapy; Z95.5 Presence of coronary angioplasty implant and graft; Z98.890 Other specified postprocedural states
CPT/HCPCS: 76937; 36222; 36223; 80048; 85025; C1894; C1769 ×3; J2250; J2001; Q9966; J3010

== ENCOUNTER → 2024-01-01 | Outpatient (CLI) | payer MEDICARE, BC ==
[2024-01-01 15:43] LABS: ALT 17 U/L (8-44); AST 25 U/L (13-35); Albumin 4.4 g/dL (3.8-4.9); Albumin/Globulin Ratio 1.63 Ratio (1.60-3.17); Alkaline Phosphatase 67 U/L (41-126); Blood Urea Nitrogen 17.1 mg/dL (9.0-27.0); Chloride 99 mmol/L (96-109); Globulin 2.7 g/dL (1.6-3.3); Glucose 94 mg/dL (70-110); Potassium 4.9 mmol/L (3.5-5.5); Sodium 136 mmol/L (135-145); Total Bilirubin 0.4 mg/dL (0.3-1.2); Total Protein 7.1 g/dL (6.2-8.2); VLDL Calculation 15.38 mg/dL (5.00-40.00)
== END | disposition home or self-care (01) ==
LOC: LABWHC1 08:13
PROVIDERS: ATTEND Internal Medicine Interventional Cardiology
DX: E78.2 Mixed hyperlipidemia (principal)
CPT/HCPCS: 36415; 80053; 80061

== ENCOUNTER → 2024-05-04 | Outpatient (CLI) | payer MEDICARE, BC ==
--- NOTE | 2024-05-04 11:39 | CTL ---
EXAMINATION TYPE: CT Low Dose Lung DATE OF EXAM ORDERED: 05/04/2024 HISTORY: . Lung cancer screening CT DLP: 37.[address] CTDI: 1.1 mGy Automated exposure control for dose reduction was used. SCREENING VISIT: COMPARISON: 05/02/2023 TECHNIQUE: Low dose computed tomography scan was performed through the chest at 1 mm thick sections a nd reconstructed images in multiple planes at 1 mm and [address] DIAGNOSTIC QUALITY: Satisfactory FINDINGS: Right upper lobe stellate density measuring 8 mm is stable. 2 mm subpleural nodule right upper lobe stable. Calcified granuloma right upper lobe stable. Calcifie d granuloma left upper lobe stable. 4 mm nodule left lower lobe stable. Mild emphysematous changes. There is no consolidative pneumonia or pulmonary edema. The heart size is normal. Dense coronary artery extensive calcifications. Trace of pericardial fluid. No pleural effusion or pneumothorax. Assessment for adenopathy is limited by noncontrast technique. Calcification the tracheobronchial sys tem. Suggestion of a vascular stent within the left subclavian artery. Small hiatal hernia. Postcholecystectomy changes. IMPRESSION: 1. Mild COPD with stable stellate density right upper lobe additional calcified and noncalcified jami gn-appearing nodules. 2. Extensive coronary artery calcification. CT LUNG RAD AND CT CHEST RECOMMENDATION: Lung-Rad 2 Benign Appearance or Behavior: Continue annual sc reening with LDCT in 12 months. [facility], , 05/04/2024 11:37 AM
== END | disposition home or self-care (01) ==
LOC: RADCTMAIN 09:02
PROVIDERS: ATTEND Internal Medicine
DX: Z12.2 Encounter for screening for malignant neoplasm of respiratory organs (principal); I25.10 Atherosclerotic heart disease of native coronary artery without angina pectoris; J44.9 Chronic obstructive pulmonary disease, unspecified; J98.4 Other disorders of lung; Z87.891 Personal history of nicotine dependence
CPT/HCPCS: 71271

== ENCOUNTER → 2024-07-14 | Outpatient (CLI) | payer MEDICARE, BC ==
[2024-07-14 16:08] LABS: ALT 16 U/L (8-44); AST 22 U/L (13-35); Chol/HDL Ratio 2.04 Ratio; LDL Cholesterol,Calculated 55.8 mg/dL (0.0-131.0)
== END | disposition home or self-care (01) ==
LOC: LABWHC1 10:18
PROVIDERS: ATTEND Nurse Practitioner Adult Health
DX: E78.2 Mixed hyperlipidemia (principal)
CPT/HCPCS: 36415; 80061; 84450; 84460

== ENCOUNTER 2025-01-18 09:45 | Day surgery (SDC) | payer MEDICARE, BC ==
[2025-01-17 09:22] VITALS: BMI 18.7
[~2025-01-18 09:45] MED LIST changes: -ASPIRIN 325 MG TAB PO PRN; -EMPTY BAG 1 BAG with SODIUM CHLORIDE 0.9% 1,000 ML IV SCH; -HEPARIN SODIUM,PORCINE (1 ML) 2,500 UNIT in SODIUM CHLORIDE 0.9% 250 ML IRRIGATION PRN; -HEPARIN SODIUM,PORCINE 10,000 UNIT in SODIUM CHLORIDE 0.9% 1,000 ML IRRIGATION PRN; +LIDOCAINE 1% (10MG/ML) FOR IV START INTRADERMA PRN; -ZOLPIDEM 5 MG TAB PO PRN
[2025-01-18 10:26] VITALS: TEMP 97.4
[2025-01-18] MEDS: LACTATED RINGERS 1,000 ML IV SCH (10:26)
[2025-01-18] MEDS: IV FLUID CONTINUATION 1,000 ML IV ONE (10:26)
[2025-01-18] MEDS ORDERED: PROPOFOL 10 MG/ML 20 ML VIAL IV ONE (10:53)
--- NOTE | 2025-01-18 10:58 | P.GSHP ---
History of Present Illness H&P Date: 01/18/25 Chief Complaint: Abnormal stool test 74-year-old female here for colonoscopy. She thinks her last colonoscopy was 10 years ago or so. Recent Cologuard abnormal. No bowel complaints. Past Medical History Past Medical History: Coronary Artery Disease (CAD), COPD, CVA/TIA, Hyperlipidemia, Hypertension, Osteoarthritis (OA), Vascular Disorder Additional Past Medical History / Comment(s): chronic pain to left shoulder- brachial plexus injury, multiple TIAs-left arm weaker than rt, MTHFR, factor V leiden, hx carotid stenosis History of Any Multi-Drug Resistant Organisms: None Reported Past Surgical History: Bladder Surgery, Cholecystectomy, Heart Catheterization, Heart Catheterization With Stent, Hysterectomy, Orthopedic Surgery, Tubal Ligation Additional Past Surgical History / Comment(s): subclavian to carotid bypass, hemorrhoidectomy, bilateral breast benign lumpectomies, epicondyle release both elbows, left ring finger surgery, bladder suspension Past Anesthesia/Blood Transfusion Reactions: No Reported Reaction Date of Last Stent Placement:: 2009 Past Psychological History: No Psychological Hx Reported Smoking Status: Current every day smoker Past Alcohol Use History: None Reported Additional Past Alcohol Use History / Comment(s): started smoking at 20,currently smokes a "few cigarettes per day" Past Drug Use History: None Reported - Past Family History Mother Family Medical History: Dementia Father Family Medical History: Cancer Additional Family Medical History / Comment(s): lung Medications and Allergies Home Medications Medication Instructions Recorded Confirmed Type Docusate [Colace] 100 mg PO BID 03/25/14 01/18/25 History Metoprolol Tartrate [Lopressor] 12.5 mg PO BID 03/25/14 01/18/25 History Atorvastatin [Lipitor] 20 mg PO HS 03/14/23 01/18/25 History Cholecalciferol [Vitamin D3 (25 75 mcg PO DAILY 03/14/23 01/18/25 History Mcg = 1000 Iu)] Rivaroxaban [Xarelto] 20 mg PO W/SUPPER 03/14/23 01/18/25 History Aspirin 81 mg PO DAILY 12/17/23 01/18/25 History Allergies Allergy/AdvReac Type Severity Reaction Status Date / Time cefixime [From Suprax] Allergy Unknown Verified 01/18/25 10:09 diazepam [From Valium] Allergy suicidal Verified 01/18/25 10:09 ezetimibe [From Vytorin] Allergy Unknown Verified 01/18/25 10:09 hydroxychloroquine sulfate Allergy Unknown Verified 01/18/25 10:09 [From Plaquenil] morphine Allergy irradict/aggressive Verified 01/18/25 10:09 behavior moxifloxacin HCl Allergy Unknown Verified 01/18/25 10:09 [From Avelox] Quinolones Allergy Anaphylaxis Verified 01/18/25 10:09 simvastatin [From Vytorin] Allergy Unknown Verified 01/18/25 10:09 steroid Allergy Anaphylaxis-with Uncoded 01/18/25 10:09 steroid injection to hand Surgical - Exam Vital Signs Temp Pulse Resp BP Pulse Ox 97.4 F L 80 14 141/107 98 01/18/25 10:15 01/18/25 10:15 01/18/25 10:15 01/18/25 10:15 01/18/25 10:15 Physical exam: General: Well-developed, well-nourished HEENT: Normocephalic, sclerae nonicteric Abdomen: Nontender, nondistended Extremities: No edema Neuro: Alert and oriented Assessment and Plan (1) Abnormal stool test Narrative/Plan: Will proceed with colonoscopy at this time. Current Visit: Yes Status: Acute Code(s): R19.5 - OTHER FECAL ABNORMALITIES SNOMED Code(s): 424415106
--- NOTE | 2025-01-18 11:13 | P.PCN ---
Date of Procedure: 01/18/25 Procedure(s) Performed: PREOPERATIVE DIAGNOSIS: Abnormal Cologuard POSTOPERATIVE DIAGNOSIS: Descending colon polyp, rectal polyp PROCEDURE: Colonoscopy with snare polypectomy ANESTHESIA: MAC SURGEON: Zay Arellano M.D. SPECIMENS: Polyp ENDOSCOPIC PROCEDURE: The patient was placed on the endoscopy table in the left decubitus position. The Olympus colonoscope was inserted into the anus and passed under direct visualization to the base of the cecum. The appendiceal orifice was visualized. From that point the scope was slowly withdrawn inspecting all surfaces carefully. There were no neoplastic inflammatory or polypoid lesions throughout the cecum, ascending, and transverse colon. In the descending colon a small polyp was seen and removed using the snare with cautery technique. The remainder of the descending and sigmoid colon appeared normal. In the rectum a small polyp was seen and removed using the snare with cautery technique. There was no visible diverticulosis. Digital rectal examination was normal. The patient was taken to the recovery room in stable condition per anesthesia guidelines. RECOMMENDATIONS: Await biopsy results. Will contact patient with timing for next colonoscopy.
[2025-01-18 11:24] VITALS: RESP 16
[2025-01-18 12:06] VITALS: PULSE 64
[2025-01-18 12:29] VITALS: BP 102/63
== END 2025-01-18 12:34 | disposition home or self-care (01) ==
LOC: ORWHC2ENDO 09:45
PROVIDERS: ATTEND Surgery
DX: D12.4 Benign neoplasm of descending colon (principal); D12.8 Benign neoplasm of rectum; R19.5 Other fecal abnormalities; I25.10 Atherosclerotic heart disease of native coronary artery without angina pectoris; J44.9 Chronic obstructive pulmonary disease, unspecified; E78.5 Hyperlipidemia, unspecified; I10 Essential (primary) hypertension; M19.90 Unspecified osteoarthritis, unspecified site; D68.51 Activated protein C resistance; G54.0 Brachial plexus disorders; F17.210 Nicotine dependence, cigarettes, uncomplicated; Z79.01 Long term (current) use of anticoagulants; Z79.899 Other long term (current) drug therapy; Z79.82 Long term (current) use of aspirin; Z90.710 Acquired absence of both cervix and uterus; Z98.890 Other specified postprocedural states; Z90.49 Acquired absence of other specified parts of digestive tract; Z98.51 Tubal ligation status; Z86.73 Personal history of transient ischemic attack (TIA), and cerebral infarction without residual deficits; Z88.8 Allergy status to other drugs, medicaments and biological substances
CPT/HCPCS: 45385; J2704; 88305